=== PATIENT | female | born 1955 | race Caucasian/White ===

== ENCOUNTER 2019-10-13 11:54 | Outpatient (CLI) | payer OTHER, SELFPAY ==
--- NOTE | ~2019-10-13 | MMUS_ITS ---
EXAMINATION: MM diagnostic garcía BI w arabella, US breast RT limited HISTORY: Right breast lump TECHNIQUE: ML, MLO and craniocaudal 3-D tomosynthesis images of were performed and synthetic 2-D imag es were generated. CAD analysis was submitted and interpreted. Targeted ultrasound of right breast at area of complaint of right breast lump at 1:30 o'clock 5 cm from nipple COMPARISON: 03/17/2010 bilateral digital screening mammogram BREAST PARENCHYMAL COMPOSITION: The breasts are almost entirely fatty. FINDINGS: MAMMOGRAM: No suspicious mass or architectural distortion, malignant calcification, skin thickening or retractio n is detected. No significant new or developing density is evident since 03/17/2010 ULTRASOUND: At 1:30 5 cm from the nipple there is a circumscribed parallel 4.2 x 2.2 x 4.5 mm sonolucency with t hin septation, consistent with benign septated cyst. IMPRESSION: 1. No mammographic evidence of malignancy; benign right breast cyst at 1:30 o'clock 5 cm from nipple 2. Routine mammographic screening is recommended BI-RADS Category 2: Benign finding(s). Reviewed, dictated and finalized at location A. IMPRESSION: 1. No mammographic evidence of malignancy; benign right breast cyst at 1:30 o'c lock 5 cm from nipple 2. Routine mammographic screening is recommended BI-RADS Category 2: Benign finding(s).
== END 2019-10-13 11:55 | disposition home or self-care (01) ==
LOC: ANHIMG 12:07
PROVIDERS: PCP Nurse Practitioner Adult Health; Visit Provider Nurse Practitioner Adult Health
DX: N63.12 Unspecified lump in the right breast, upper inner quadrant (principal)
CPT/HCPCS: 76642; 77062; 77066; G0279

== ENCOUNTER 2023-09-02 12:31 | Outpatient (CLI) | payer MEDICARE, SELFPAY ==
--- NOTE | ~2023-09-02 | US_ITS ---
EXAMINATION: US soft tissue head and neck DATE: 09/02/2023 13:00 INDICATION: Localized swelling, mass and lump, neck. TECHNIQUE: Multiple ultrasound images of the thyroid were obtained. COMPARISON: Ultrasound 08/08/2018 FINDINGS: The right thyroid lobe measures 4.1 x 1.1 x 1.5 cm. The left thyroid lobe measures 3.9 x 1.3 x 1.4 c m. In the left thyroid lobe, there is a 9 mm solid, very hypoechoic, wider than tall nodule with smo oth margin without echogenic foci (TI-RADS TR4). In the left thyroid lobe, there is a 13 mm solid, hy poechoic wider than tall nodule with ill-defined margin without echogenic foci (TR4). IMPRESSION: 1. Small thyroid nodules. Thyroid ultrasound is recommended in one year. Reviewed, dictated and finalized at location A.
--- NOTE | ~2023-09-02 | CT_ITS ---
CT of the Abdomen and Pelvis: Indication: Abdominal pain Technique: 2.5 mm axial scans were obtained through the abdomen and pelvis following intravenous adm inistration of 100 cc of Omnipaque 350. Dose reduction technique was used on this scan by utilizing a utomated exposure control and iterative reconstruction technique. The dose-length product (DLP) was 1 029.30 mGy-cm. Findings: Scans through the lung bases demonstrate 3 mm right middle lobe pulmonary nodule. The liver, spleen, pancreas, adrenals and kidneys are within normal limits. Cholecystectomy clips are present. There are atherosclerotic calcifications of the aorta. No lymphadenopathy. No bowel obstruction or bowel wall thickening. There is no evidence to suggest acute appendicitis. Ev idence of prior herniorrhaphy. Images through the pelvis were performed. Urinary bladder unremarkable. No pelvic mass seen. No ascit es. Impression: 3 mm right middle lobe pulmonary nodule, most likely benign. Consider 12 month follow-up scan for a h igh-risk patient. For a low-risk patient, no further follow-up required. No other significant findings. Reviewed, dictated and finalized at location . Impression: 3 mm right middle lobe pulmonary nodule, most likely benign. Consider 12 month follow-up scan for a high-risk patient. For a low-risk patient, no further foll ow-up required. No other significant findings.
[2023-09-02 13:08] LABS: Estimated Glomerular Filt Rate > 60
== END 2023-09-02 12:32 ==
PROVIDERS: PCP Family Medicine; Visit Provider Family Medicine
DX: R91.1 Solitary pulmonary nodule (principal); E04.2 Nontoxic multinodular goiter
CPT/HCPCS: 74177; 76536; Q9967

== ENCOUNTER 2023-12-16 10:41 | Outpatient (CLI) | payer MEDICARE, SELFPAY ==
--- NOTE | ~2023-12-16 | US_ITS ---
US axilla LT 12/16/2023 10:56 Indication: Localized enlarged lymph nodes Procedure: High-resolution ultrasound of the left axilla Comparison: No prior studies for comparison. Findings: In the area of palpable concern there is an 8 mm hyperechoic mass which may represents a be nign lipoma or normal lymph node. No other masses are identified. Impression: 1: Hyperechoic 8 mm left axillary mass corresponds to the area of palpable concern which most likely represents a benign lipoma or abnormal lymph node. Recommend follow-up as clinically indicated. Reviewed, dictated and finalized at location B. Impression: 1: Hyperechoic 8 mm left axillary mass corresponds to the area of palpable conc pippa which most likely represents a benign lipoma or abnormal lymph node. Recomm end follow-up as clinically indicated.
--- NOTE | ~2023-12-16 | US_ITS ---
EXAMINATION: US soft tissue head and neck DATE: 12/16/2023 10:57 INDICATION: R59.0 - Localized enlarged lymph nodes . TECHNIQUE: Grayscale and Doppler ultrasound images of the right neck were obtained. COMPARISON: None. FINDINGS: The area of clinical concern in the right supraclavicular region was sonographically interr ogated. No solid or cystic mass. No abnormality detected. IMPRESSION: No sonographic abnormality detected in the area of clinical concern. Reviewed, dictated and finalized at location K.
== END 2023-12-16 10:42 ==
LOC: MICIMG 10:42
PROVIDERS: PCP Nurse Practitioner Adult Health; Visit Provider Nurse Practitioner Adult Health
DX: R59.0 Localized enlarged lymph nodes (principal); R59.9 Enlarged lymph nodes, unspecified
CPT/HCPCS: 76536; 76882

== ENCOUNTER 2023-12-24 08:39 | Outpatient (CLI) | payer MEDICARE, SELFPAY ==
--- NOTE | ~2023-12-24 | MM_ITS ---
EXAMINATION: MM diagnostic garcía BI w arabella HISTORY: Recent left axillary ultrasound for palpable abnormality. TECHNIQUE: Additional 3-D tomosynthesis images of the breasts were performed and synthetic 2-D images were generated. CAD analysis was submitted and interpreted. COMPARISON: 10/13/2019 BREAST PARENCHYMAL COMPOSITION: Not dense: There are scattered areas of fibroglandular density. FINDINGS: The breasts are stable. No new masses, calcifications or architectural distortion in either breast to suggest malignancy. There are benign vascular calcifications. IMPRESSION: 1. No mammographic evidence for malignancy in either breast. 2. Recommend 6 month follow-up Limited left axillary ultrasound recommended. BI-RADS category 3, probably benign findings. Reviewed, dictated and finalized at location B.
== END 2023-12-24 08:40 ==
LOC: MICIMG 08:40
PROVIDERS: PCP Nurse Practitioner Adult Health; Visit Provider Nurse Practitioner Adult Health
DX: R59.0 Localized enlarged lymph nodes (principal); R92.8 Other abnormal and inconclusive findings on diagnostic imaging of breast
CPT/HCPCS: 77062; 77066; G0279

== ENCOUNTER 2024-07-06 11:20 | Outpatient (CLI) | payer MEDICARE, SELFPAY ==
--- NOTE | ~2024-07-06 | MMUS_ITS ---
EXAMINATION: MM diagnostic garcía LT w arabella, US axilla LT HISTORY: Follow-up left axillary mass. TECHNIQUE: Additional 3-D tomosynthesis images of the left breast were performed and synthetic 2-D im ages were generated. CAD analysis was submitted and interpreted. High resolution left axillary ultras ound was performed. COMPARISON: Comparison to multiple prior studies sequentially, with oldest reviewed study dated 08/16. BREAST PARENCHYMAL COMPOSITION: Not Dense: The breasts are almost entirely fatty. FINDINGS: MAMMOGRAPHIC FINDINGS: There are no suspicious masses, calcifications or architectural distortion in the left breast to sugg est malignancy. ULTRASOUND: Left axillary ultrasound: Palpable concern there is a normal-appearing left axillary lymph node measuring 1 cm. A second hetero geneous mass is present in the area palpable concern with complex internal echogenicity measuring 3.7 x 2.4 x 2.3 cm. There is internal vascularity and no significant posterior features. IMPRESSION: 1. New complex 3.7 cm left axillary mass which is not visualized by mammography. 2. Ultrasound-guided left axillary biopsy recommended. BI-RADS category 4, suspicious findings. Reviewed, dictated and finalized at location B. [facility]NER IMPRESSION: 1. New complex 3.7 cm left axillary mass which is not visualized by mammography . 2. Ultrasound-guided left axillary biopsy recommended. BI-RADS category 4, suspicious findings.
== END 2024-07-06 11:21 | disposition home or self-care (01) ==
LOC: MICIMG 11:21
PROVIDERS: PCP Nurse Practitioner Adult Health; Visit Provider Nurse Practitioner Adult Health
DX: R59.0 Localized enlarged lymph nodes (principal); R92.8 Other abnormal and inconclusive findings on diagnostic imaging of breast
CPT/HCPCS: 76882; 77061; 77065; G0279

== ENCOUNTER 2024-07-31 11:03 | Outpatient (CLI) | payer MEDICARE, SELFPAY ==
--- NOTE | ~2024-07-31 | US_ITS ---
EXAM: Focused ultrasound examination of the soft tissues of the bilateral axilla and bilateral groins . HISTORY: R22.32 - Localized swelling, mass and lump, left upper limb TECHNIQUE: Sonographic evaluation of the soft tissues of the left axilla were performed assessing gra yscale appearance and color Doppler flow. Sonographic evaluation of the soft tissues of the right axilla were performed assessing grayscale kiley earance and color Doppler flow. Sonographic evaluation of the soft tissues of the left groin were performed assessing grayscale appea dann and color Doppler flow. Sonographic evaluation of the soft tissues of the right groin were performed assessing grayscale appe arance and color Doppler flow. COMPARISON: 07/06/2024. FINDINGS: Sonographic evaluation of the soft tissues of the LEFT AXILLA demonstrate a single morphologically be nign nonpathologically enlarged lymph node measuring 9.5 mm in short axis dimension for which no biop sy is necessary. Sonographic evaluation of the remainder of the soft tissues of the left axilla demonstrate benign fib roglandular and fibromuscular soft tissues without a cystic or solid lesion of concern. Of note, the heterogeneous mass detected on previous examination measuring 3.7 x 2.4 x 2.3 cm is less prominent on today's study, and is without sonographic concern. Sonographic evaluation of the soft tissues of the RIGHT AXILLA demonstrates a single morphologically benign nonpathologically enlarged lymph node measuring 11.8 mm in short axis dimension. Sonographic evaluation of the remainder of the soft tissues of the right axilla demonstrate benign fi bromuscular elements without a cystic or solid lesion of concern. Sonographic evaluation of the soft tissues of the LEFT GROIN demonstrate a single morphologically kemar ign lymph node measuring 12.3 mm in short axis dimension, not pathologically enlarged. Sonographic evaluation of the remainder of the soft tissues of the left groin demonstrates benign fib romuscular elements without a cystic or solid lesion of concern. Sonographic evaluation of the soft tissues of the RIGHT GROIN demonstrates benign and fibromuscular e lements without a cystic or solid lesion of concern. No lymph nodes are appreciated sonographically. IMPRESSION: No sonographic abnormality is appreciated on focused ultrasound examination of the bilateral axilla o r bilateral groins suitable for ultrasound-guided biopsy, which was aborted. Given the patient's concern regarding her significant family history of lymphoma (diagnosed in the pa tient's mother and sister) limited ultrasound examination of the major superficial lymph node basins were performed yielding benign results. BI-RADS Category 2: Benign findings. Follow-up in 6 months to resume yearly bilateral mammography (in December 2024) is recommended. Reviewed, dictated and finalized at location A. IMPRESSION: No sonographic abnormality is appreciated on focused ultrasound examination of the bilateral axilla or bilateral groins suitable for ultrasound-guided biopsy, which was aborted. Given the patient's concern regarding her significant family history of lymphom a (diagnosed in the patient's mother and sister) limited ultrasound examination of the major superficial lymph node basins were performed yielding benign resu lts. BI-RADS Category 2: Benign findings. Follow-up in 6 months to resume yearly bilateral mammography (in December 2024) i s recommended.
--- OUTSIDE RECORDS SUMMARY | 2024-07-31 13:18 | XMS_ITS | CONTINUITY OF CARE DOCUMENT ---
Author Name nelsonana koilir Address Unknown Organization [facility] Address [address] [place] [address] Phone [phone] Care Team Providers Care Processing Technologist Name Role Phone Kris Land MD Unavailable [phone] LEFTY FINNEGAN MD Unavailable [phone] LEFTY FINNEGAN MD Unavailable PROBLEMS Condition Status Date Provider Notes SYNCOPE AND COLLAPSE active Kris ng MD PALPITATIONS active Kris Land MD MITRAL REGURGITATION active Kris ng MD ENCOUNTERS Date Type Provider Location Encounter Diag nosis - In-person encounter Office Visit Kris Land MD [place] Office SYNCOPE AND COLLAPSEPALPITATIONSMITRAL REGURGITATION VITAL SIGNS Date Observation Value Provider Body Mass Index (Ratio) 42.60 kg/m2 Raleigh ag [place] blood pressure, diastolic, left arm 79 mm [Hg] Ephraim [place] blood pressure, systolic, left arm 153 mm [Hg] Ephraim [place] blood pressure, diastolic, right arm 87 m m[Hg] Ephraim [place] blood pressure, systolic, right arm 158 m m[Hg] Ephraim [place] blood pressure, diastolic 87 mm[Hg] Izabella seph [place] blood pressure, systolic 158 mm[Hg] Yahir eph [place] pulse rate 82 /min Ephraim [place] oxygen saturation, oximetry 98 % Ephraim Hinkle respiratory rate E&M 16 /min Ephraim Hinkle weight E&M 225.4 [lb_av] Ephraim Hinkle height E&M 61.1 [in_i] Ephraim Hinkle ALLERGIES Allergy Name Onset Date Reaction Criticality Status CODEINE nausea and vomitting Low Criticality active EDVIN INHIBITORS itching in throat Low Criticalit y active HISTORY OF MEDICATION USE Medication Status Instructions Dates Provider Indications Com ments DIPHENHYDRAMINE HCL 25 MG ORAL TABLET active 1 tablet by mouth 3-4 times per week 8 Ephraim Manacosanjay MULTIVITAMINS TABS active 1 tablet by mouth daily 8 Ephraim Manacosanjay ASPIRIN 81 MG ORAL TABLET active 1 tablet by mouth daily 8 Ephraim Paacosanjay VITAMIN D (ERGOCALCIFEROL) 51179 UNIT ORAL CAPSULE active 1 capsule by mouth every 2 weeks 8 Ephraim Paacosanjay AMLODIPINE BESYLATE 2.5 MG ORAL TABLET active 1 tablet by mouth daily 8 Ephraim Manacosanjay ATENOLOL 25 MG ORAL TABLET active 1 tablet by mouth daily 8 Ephraim [place] NEXIUM 40 MG ORAL CAPSULE DELAYED RELEASE active 1 capsule by mouth daily 8 Ephraim Manacosanjay POTASSIUM CHLORIDE 20 MEQ ORAL PACKET active 1 tablet by mouth daily 8 Ephraim Paacosanjay WELCHOL 625 MG ORAL TABLET active 4 tablets by mouth daily 8 Ephraim Hinkle SOCIAL HISTORY Date Observation Value Provider social history reviewed E&M reviewed Kris Land MD number of children 2 children Ephraim baker social history E&M Marital Statu s: C hildren: 2 children L delphine with family/friends J ob Status: Retired E thnicity: Ephraim Hinkle exercise type walking Ephraim Hinkle physical exercise, frequency, days per week 2 /wk Ephraim Hinkle caffeine use, averag e drinks per day 0 /d Ephraim Hinkle drug use none Ephraim Hinkle alcohol use, type Wine - occasional Torsten nikolay [place] passive cigarette sm esau exposure yes Ephraim [place] smoking history, tot al pack/year 1/2 pack per day for 10 years Ephraim Paacosanjay smoking, year quit 1985 Ephraim López nacop smoking status former smoker Ephraim Pamichelle op MENTAL STATUS Date Observation Value Provider assessment of judgme nt and insight E&M Alert and oriented to time, place and person. Mood and affect are normal. Kris Land MD INSURANCE PROVIDERS Payer name Policy type / Coverage type [place] [employer] party [employer] PPO Other [id number] TREATMENT PLAN Date Name Complete Echo Carotid Duplex Bilat eral HISTORY OF PROCEDURES Procedure Date Procedure Name Provider Procedure Notes S sydney Schedule Followup Kris Land MD fu in 1 month completed EKG Kris Land MD in next several weeks completed
--- OUTSIDE RECORDS SUMMARY | 2024-07-31 13:18 | XMS_ITS | Data Portability ---
Author Organization [place] - [facility] [employer], Main Office Address [address] [place] [address] Care Team Providers Care Facility Engineer Name Role Phone SAMMY CANO Primary Care Provider SAMMY CANO Referring Provider [phone] Assessment Encounter Date Assessment Date Assessment LastModified by Organization Details LastModified Time 01/28/2023 01/28/2023 This note is dictated and transcribed by PopJam Direct Software. Network Control Operator variances may occur. Despite proofreading, typographical errors may occur. [email or web address] Not available 01/28/2023 11:43:15 Plan of Treatment Reminders Order Date Submit Date Provider Last Modified By Organization Details Last Modified Time Details Appointments None recorded. Lab CBC w/ auto diff 2023 024 [facility], [address], [place], [address], 4 05:40:38 CMP, serum or plasma 2023 024 [facility], [address], [place], [address], 4 05:40:37 urinalysis complete, reflex culture 2023 024 [facility], [place], [address], 4 05:40:39 TSH, serum or plasma 2023 024 [facility], [place], [address], 4 05:40:41 HbA1c (hemoglobin A1c), blood 2022 023 [email or web address] [facility], [address], [place], [address], 3 08:29:02 CMP, serum or plasma 2022 023 [email or web address] [facility], [address], [place], [address], 3 08:29:02 CBC 2022 023 [email or web address] [facility], [address], [place], [address], 3 08:29:02 lipid panel, serum 2022 023 [email or web address] [facility], [address], [place], [address], 3 08:29:03 microalbumi n, urine 2022 023 [email or web address] [facility], [address], [place], [address], 3 08:29:03 Referral change coordinator referral 2022 023 sajan Guerrier DPM, [address], [address], [place], [address], 3 20:44:18 Procedures None recorded. Surgeries None recorded. Imaging CT, abdomen + pelvis, w/ contrast 2023 [email or web address] [place] [address], [address], [place], [address], 4 08:42:47 US, neck, soft tissue 2023 [email or web address] [place] [address], [address], [place], [address], 4 09:42:45 XR, foot, 3 or more view 2022 023 [email or web address] 7 [facility] [place], [address], [address], [place], [address], 3 12:14:59 Medication Orders EpiPen 2-León 0.3 mg/0.3 mL injection, auto-inject or 2022 023 [facility] [id number] In [facility], [address], [place], [address], 3 16:42:21 metformin ER 500 mg tablet,exte nded release 24 hr 2022 023 [facility], [facility], [place], [address], 3 16:42:17 amlodipine 10 mg tablet 2022 023 [facility], [facility], [place], [address], 3 16:42:16 Patient TargetsNo targets recorded. Patient InstructionsNo instructions recorded. 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 [address] , [place], [address], 04/05/2022 10:33:56 04/04/2004/05/2022 ALBUM IN, RANDO M URINE W/O CREAT ININE CATARINA The ADA defin es abnor malit ies in album in excre tion as follo ws: Album inuri a Categ ory Resul t (mcg/ mg creat inine ) Felicita l to Mildl y incre ased <30 Moder ately incre ased 30-29 9 Sever wendy incre ased > OR = 300 The ADA recom mends that at least two of three speci mens colle cted withi n a 3-6 month perio d be abnor mal befor e consi magdiel g a patie nt to be withi n a diagn ostic categ ory. Not Available [facility] [address] [place], [address], 04/05/2022 10:33:56 04/04/20 22 04/06/2022 HEMOG LOBIN A1C hemoglobin A1C 5.8 %_of_ total _HGB <5.7 high For someo ne witho ut known diabe leigh, a hemog lobin A1c value betwe en 5.7% and 6.4% is consi stent with predi abete s and shoul d be confi rmed with a follo w-up test. For someo ne with known diabe leigh, a value <7% indic ates that their diabe leigh is well contr olled . A1c targe ts shoul d be indiv idual ized based on durat ion of diabe leigh, age, comor bid condi tions , and other consi derat ions. This assay resul t is consi stent with an incre ased risk of diabe leigh. Curre ntly, no conse nsus exist s regar ding use of hemog lobin A1c for diagn osis of diabe leigh for child kimberly. Not Available [facility] [address] [place], [address], 04/06/2022 13:02:05 04/04/20 22 04/06/2022 VITAM IN D,25- OH,TO ADRIANA,I A vitamin D,25-oh,tota l,ia 56 NG/mL 30-100 normal Vitam in D Statu s 25-OH Vitam in D: Defic iency : <20 ng/mL Insuf ficie ncy: 20 - 29 ng/mL Optim al: > or = 30 ng/mL For 25-OH Vitam in D testi ng on patie nts on D2-rolon pplem entat ion and patie nts for whom quant itati on of D2 and D3 fract ions is requi red, the [facility] eD(TM ) 25-OH VIT D, (D2,D 3), LC/MS /MS is recom larry d: order code 09460 (all ents >2yrs ). See Note 1 Note 1 For addit ional infor joseph truong e refer to http: //[facility] kanwal Realia gnost ics.c om/fa q/FAQ 199 (This link is being provi ded for infor cecy espinoza/ patricia hagen purpo ses only. ) Not Available [facility] [place] [address] [place], [address], 04/06/2022 13:02:04 04/04/20 22 04/06/2022 VITAM IN B12/F OLATE , SERUM PANEL vitamin B12 945 pg/mL 200-11 00 normal Not Available [facility] [place] [address] [place], [address], 04/06/2022 13:02:03 04/04/20 22 04/06/2022 VITAM IN B12/F OLATE , SERUM PANEL folate, serum >24.0 NG/mL normal Refer ence Range Low: <3.4 Borde rline : 3.4-5 .4 Felicita l: >5.4 Not Available [facility] [place] [address] [place], [address], 04/06/2022 13:02:03 04/04/20 22 04/06/2022 TSH TSH 2.95 mIU/L 0.40-4 .50 normal Not Available [address], [address], 04/06/2022 13:02:02 04/04/20 22 04/06/2022 T4, FREE T4, free 1.2 NG/dL 0.8-1. 8 normal Not Available [address], [address], 04/06/2022 13:02:02 04/04/20 22 04/06/2022 CBC (INCL UDES DIFF/ PLT) white blood cell count 5.6 thous and/u L 3.8-10 .8 normal Not Available [address], [address], 04/06/2022 13:02:01 04/04/20 22 04/06/2022 CBC (INCL UDES DIFF/ PLT) MCV 89.4 fL 80.0-1 00.0 normal Not Available [address], [address], 04/06/2022 13:02:01 04/04/20 22 04/06/2022 CBC (INCL UDES DIFF/ PLT) red blood cell count 5.28 rodger on/uL 3.80-5 .10 high Not Available [address], [address], 04/06/2022 13:02:01 04/04/20 22 04/06/2022 CBC (INCL UDES DIFF/ PLT) hemoglobin 16.3 g/dL 11.7-1 5.5 high Not Available [facility] [address], [address], 04/06/2022 13:02:01 04/04/20 22 04/06/2022 CBC (INCL UDES DIFF/ PLT) hematocrit 47.2 % 35.0-4 5.0 high Not Available [address], [address], 04/06/2022 13:02:01 04/04/20 22 04/06/2022 CBC (INCL UDES DIFF/ PLT) MCH 30.9 pg 27.0-3 3.0 normal Not Available [address], [address], 04/06/2022 13:02:01 04/04/20 22 04/06/2022 CBC (INCL UDES DIFF/ PLT) MCHC 34.5 g/dL 32.0-3 6.0 normal Not Available [address], [address], 04/06/2022 13:02:01 04/04/20 22 04/06/2022 CBC (INCL UDES DIFF/ PLT) RDW 12.5 % 11.0-1 5.0 normal Not Available [address], [address], 04/06/2022 13:02:01 04/04/20 22 04/06/2022 CBC (INCL UDES DIFF/ PLT) platelet count 227 thous and/u L 140-40 0 normal Not Available [address], [address], 04/06/2022 13:02:01 04/04/20 22 04/06/2022 CBC (INCL UDES DIFF/ PLT) MPV 11.9 fL 7.5-12 .5 normal Not Available [address], [address], 04/06/2022 13:02:01 04/04/20 22 04/06/2022 CBC (INCL UDES DIFF/ PLT) absolute neutrophils 3438 cells /uL 1500-7 800 normal Not Available [address], [address], 04/06/2022 13:02:01 04/04/20 22 04/06/2022 CBC (INCL UDES DIFF/ PLT) absolute lymphocytes 1439 cells /uL 850-39 00 normal Not Available [address], [address], 04/06/2022 13:02:01 04/04/2004/06/2022 CBC (INCL UDES DIFF/ PLT) absolute monocytes 577 cells /uL 200-95 0 normal Not Available [address], [address], 04/06/2022 13:02:01 04/04/20 22 04/06/2022 CBC (INCL UDES DIFF/ PLT) absolute eosinophils 118 cells /uL 15-500 normal Not Available [address], [address], 04/06/2022 13:02:01 04/04/2004/06/2022 CBC (INCL UDES DIFF/ PLT) absolute basophils 28 cells /uL 0-200 normal Not Available [address], [address], 04/06/2022 13:02:01 04/04/2004/06/2022 CBC (INCL UDES DIFF/ PLT) neutrophils 61.4 % normal Not Available [address], [address], 04/06/2022 13:02:01 04/04/2004/06/2022 CBC (INCL UDES DIFF/ PLT) lymphocytes 25.7 % normal Not Available [address], [address], 04/06/2022 13:02:01 04/04/2004/06/2022 CBC (INCL UDES DIFF/ PLT) monocytes 10.3 % normal Not Available [address] [place], [address], 04/06/2022 13:02:01 04/04/2004/06/2022 CBC (INCL UDES DIFF/ PLT) eosinophils 2.1 % normal Not Available [address], [address], 04/06/2022 13:02:01 04/04/20 22 04/06/2022 CBC (INCL UDES DIFF/ PLT) basophils 0.5 % normal Not Available [address], [address], 04/06/2022 13:02:01 04/04/20 22 04/06/2022 COMPR EHENS ANUEL METAB OLIC PANEL glucose 114 mg/dL 65-139 normal Non-f astin g refer ence inter amy Not Available [address], [address], 04/06/2022 13:02:01 04/04/20 22 04/06/2022 COMPR EHENS ANUEL METAB OLIC PANEL urea nitrogen (BUN) 13 mg/dL 7-25 normal Not Available [address], [address], 04/06/2022 13:02:01 04/04/20 22 04/06/2022 COMPR EHENS ANUEL METAB OLIC PANEL creatinine 0.70 mg/dL 0.50-1 .05 normal Not Available [address], [address], 04/06/2022 13:02:01 04/04/20 22 04/06/2022 COMPR EHENS NAUEL METAB OLIC PANEL eGFR 96 mL/mi n/1.7 3m2 > or = 60 normal The eGFR is based on the CKD-E PI 2020 equat ion. To calcu late the new eGFR from a previ ous Creat inine or Cysta walker C resul t, go to https ://xavi cornell.gallito pan/julia hampton s/ kdoqi /gfr% 5Fcal culat or Not Available [address], [address], 04/06/2022 13:02:01 04/04/20 22 04/06/2022 COMPR EHENS ANUEL METAB OLIC PANEL BUN/creatini ne ratio not applic able (calc ) 6-22 Not Available [address], [address], 04/06/2022 13:02:01 04/04/20 22 04/06/2022 COMPR EHENS ANUEL METAB OLIC PANEL sodium 141 mmol/ L 135-14 6 normal Not Available [address], [address], 04/06/2022 13:02:01 04/04/20 22 04/06/2022 COMPR EHENS ANUEL METAB OLIC PANEL potassium 3.8 mmol/ L 3.5-5. 3 normal Not Available [address], [address], 04/06/2022 13:02:01 04/04/20 22 04/06/2022 COMPR EHENS ANUEL METAB OLIC PANEL chloride 101 mmol/ L 98-110 normal Not Available [address], [address], 04/06/2022 13:02:01 04/04/20 22 04/06/2022 COMPR EHENS ANUEL METAB OLIC PANEL carbon dioxide 29 mmol/ L 20-32 normal Not Available [address], [address], 04/06/2022 13:02:01 04/04/20 22 04/06/2022 COMPR EHENS ANUEL METAB OLIC PANEL calcium 9.3 mg/dL 8.6-10 .4 normal Not Available [address], [address], 04/06/2022 13:02:01 04/04/20 22 04/06/2022 COMPR EHENS ANUEL METAB OLIC PANEL protein, total 7.1 g/dL 6.1-8. 1 normal Not Available [address], [address], 04/06/2022 13:02:01 04/04/20 22 04/06/2022 COMPR EHENS ANUEL METAB OLIC PANEL albumin 4.5 g/dL 3.6-5. 1 normal Not Available [address], [address], 04/06/2022 13:02:01 04/04/20 22 04/06/2022 COMPR EHENS ANUEL METAB OLIC PANEL globulin 2.6 g/dL_ (calc ) 1.9-3. 7 normal Not Available [address], [address], 04/06/2022 13:02:01 04/04/20 22 04/06/2022 COMPR EHENS ANUEL METAB OLIC PANEL albumin/glob ulin ratio 1.7 (calc ) 1.0-2. 5 normal Not Available [address], [address], 04/06/2022 13:02:01 04/04/20 22 04/06/2022 COMPR EHENS ANUEL METAB OLIC PANEL bilirubin, total 0.9 mg/dL 0.2-1. 2 normal Not Available [address], [address], 04/06/2022 13:02:01 04/04/20 22 04/06/2022 COMPR EHENS ANUEL METAB OLIC PANEL alkaline phosphatase 77 U/L 37-153 normal Not Available [address], [address], 04/06/2022 13:02:01 04/04/20 22 04/06/2022 COMPR EHENS ANUEL METAB OLIC PANEL AST 16 U/L 10-35 normal Not Available [address], [address], 04/06/2022 13:02:01 04/04/20 22 04/06/2022 COMPR EHENS ANUEL METAB OLIC PANEL ALT 16 U/L 6-29 normal Not Available [address], [address], 04/06/2022 13:02:01 04/04/20 22 04/06/2022 SYSTE AYDEE LUPUS ERYTH EMATO SUKHDEV (SLE) , DISEA SE ACTIV ITY PANEL DNA (ds) antibody 2 IU/mL normal IU/mL Inter preta tion < or = 4 Negat anuel 5-9 Indet ermin ate > or = 10 Posit anuel Not Available [address], [address], 04/06/2022 13:01:59 04/04/20 22 04/06/2022 SYSTE AYDEE LUPUS ERYTH EMATO SUKHDEV (SLE) , DISEA SE ACTIV ITY PANEL chromatin (nucleosomal ) antibody <1.0 neg ai <1.0 neg normal Not Available [address], [address], 04/06/2022 13:01:59 04/04/20 22 04/06/2022 SYSTE AYDEE LUPUS ERYTH EMATO SUKHDEV (SLE) , DISEA SE ACTIV ITY PANEL complement component C3C 168 mg/dL 83-193 normal Not Available [address], [address], 04/06/2022 13:01:59 04/04/20 22 04/06/2022 SYSTE AYDEE LUPUS ERYTH EMATO SUKHDEV (SLE) , DISEA SE ACTIV ITY PANEL complement component C4C 25 mg/dL 15-57 normal Not Available [address], [address], 04/06/2022 13:01:59 04/04/20 22 04/06/2022 LIPID PANEL , STAND SRAVAN chol/HDLC ratio 3.8 (calc ) <5.0 normal Not Available [facility] [address] [place], [address], 04/06/2022 13:01:59 04/04/20 22 04/06/2022 LIPID PANEL , STAND SRAVAN cholesterol, total 205 mg/dL <200 high Not Available [facility] [address] [place], [address], 04/06/2022 13:01:59 04/04/20 22 04/06/2022 LIPID PANEL , STAND SRAVAN HDL cholesterol 54 mg/dL > or = 50 normal Not Available [facility] [place] [address] [place], [address], 04/06/2022 13:01:59 04/04/20 22 04/06/2022 LIPID PANEL , STAND SRAVAN triglyceride s 155 mg/dL <150 high Not Available [facility] [place] [address] [address] [place], [address], 04/06/2022 13:01:59 04/04/20 22 04/06/2022 LIPID PANEL , STAND SRAVAN LDL-choleste rol 124 mg/dL _(cnidy c) high Refer ence range : <100 Sabino able range <100 mg/dL for prima ry preve ntion ; <70 mg/dL for patie nts with CHD or diabe tic patie nts with > or = 2 CHD risk facto rs. LDL-C is now calcu lated using the Adriana n-Hop kins calcu edi n, which is a valid ated novel metho d jonh daley r accur acy than the Fried brando equat ion in the estim ation of LDL-C . Adriana griffith SS et al. JAZMINE. 2013; 310(1 9): 2061- 2068 (http ://ed ucati on.Qu Reta shafer tics. com/f aq/FA Q164) Not Available [facility] [address] [address], [place], [address], 04/06/2022 13:01:59 04/04/20 22 04/06/2022 LIPID PANEL , STAND SRAVAN non HDL cholesterol 151 mg/dL _(cindy c) <130 high For patie nts with diabe leigh plus 1 major ASCVD risk facto r, treat ing to a non-H DL-C goal of <100 mg/dL (LDL- C of <70 mg/dL ) is ton thompson optio n. Not Available [place] [address] [place], [address], 04/06/2022 13:01:59 11/04/19 23 11/03/2022 LIPID PANEL , STAND SRAVAN cholesterol, total 201 mg/dL <200 high Not Available [address], [address], 11/04/2022 01:01:46 11/04/19 23 11/03/2022 LIPID PANEL , STAND SRAVAN HDL cholesterol 45 mg/dL > or = 50 low Not Available [place] [address] [place], [address], 11/04/2022 01:01:46 11/04/19 23 11/03/2022 LIPID PANEL , STAND SRAVAN triglyceride s 169 mg/dL <150 high Not Available [facility] [address], [address], 11/04/2022 01:01:46 11/04/19 23 11/03/2022 LIPID PANEL , STAND SRAVAN LDL-choleste rol 127 mg/dL _(cindy c) high Refer ence range : <100 Sabino able range <100 mg/dL for prima ry preve ntion ; <70 mg/dL for patie nts with CHD or diabe tic patie nts with > or = 2 CHD risk facto rs. LDL-C is now calcu lated using the Adriana n-Hop kins calcu edi n, which is a valid ated novel metho d gloriai kenneth thuy r accur acy than the Fried brando equat ion in the estim ation of LDL-C . Adriana griffith SS et al. JAZMINE. 2013; 310(1 9): 2061- 2068 (http ://ed ucati on.Qu Reta babbSiteWits. com/f aq/FA Q164) Not Available [facility] [address] [address], [place], [address], 11/04/2022 01:01:46 11/04/1911/03/2022 LIPID PANEL , STAND SRAVAN chol/HDLC ratio 4.5 (calc ) <5.0 normal Not Available [facility] [place] [address], [place], [address], 11/04/2022 01:01:46 11/04/1911/03/2022 LIPID PANEL , STAND SRAVAN non HDL cholesterol 156 mg/dL _(cindy c) <130 high For patie nts with diabe leigh plus 1 major ASCVD risk facto r, treat ing to a non-H DL-C goal of <100 mg/dL (LDL- C of <70 mg/dL ) is consi dered a thera peuti c optio n. Not Available [facility] [address] [address], [place], [address], 11/04/2022 01:01:46 11/04/1911/03/2022 COMPR EHENS ANUEL METAB OLIC PANEL glucose 113 mg/dL 65-99 high Fasti ng refer ence inter amy For someo ne witho ut known diabe leigh, a gluco se value betwe en 100 and 125 mg/dL is consi stent with predi abete s and shoul d be confi rmed with a follo w-up test. Not Available [facility] [address], [place], [address], 11/04/2022 01:01:49 11/04/1911/03/2022 COMPR EHENS ANUEL METAB OLIC PANEL urea nitrogen (BUN) 15 mg/dL 7-25 normal Not Available [facility] [place] [address] [place], [address], 11/04/2022 01:01:49 11/04/1913 1111/03/2022 COMPR EHENS ANUEL METAB OLIC PANEL creatinine 0.63 mg/dL 0.50-1 .05 normal Not Available [address], [address], 11/04/2022 01:01:49 11/04/19 23 11/03/2022 COMPR EHENS ANUEL METAB OLIC PANEL eGFR 98 mL/mi n/1.7 3m2 > or = 60 normal The eGFR is based on the CKD-E PI 2020 equat ion. To calcu late the new eGFR from a previ ous Creat inine or Cysta tin C resul t, go to https ://xavi cornell.gallito pan/julia hampton s/ kdoqi /gfr% 5Fcal culat or Not Available [address], [address], 11/04/2022 01:01:49 11/04/19 23 11/03/2022 COMPR EHENS ANUEL METAB OLIC PANEL BUN/creatini ne ratio NOT APPLIC ABLE (calc ) 6-22 Not Available [address], [address], 11/04/2022 01:01:49 11/04/19 23 11/03/2022 COMPR EHENS ANUEL METAB OLIC PANEL sodium 140 mmol/ L 135-14 6 normal Not Available [address], [address], 11/04/2022 01:01:49 11/04/19 23 11/03/2022 COMPR EHENS ANUEL METAB OLIC PANEL potassium 4.3 mmol/ L 3.5-5. 3 normal Not Available [address], [address], 11/04/2022 01:01:49 11/04/19 23 11/03/2022 COMPR EHENS ANUEL METAB OLIC PANEL chloride 103 mmol/ L 98-110 normal Not Available [address] [place], [address], 11/04/2022 01:01:49 11/04/19 23 11/03/2022 COMPR EHENS ANUEL METAB OLIC PANEL carbon dioxide 31 mmol/ L 20-32 normal Not Available [address], [address], 11/04/2022 01:01:49 11/04/1911/03/2022 COMPR EHENS ANUEL METAB OLIC PANEL calcium 9.4 mg/dL 8.6-10 .4 normal Not Available [address], [address], 11/04/2022 01:01:49 11/04/1911/03/2022 COMPR EHENS ANUEL METAB OLIC PANEL protein, total 7.1 g/dL 6.1-8. 1 normal Not Available [address], [address], 11/04/2022 01:01:49 11/04/19 23 11/03/2022 COMPR EHENS ANUEL METAB OLIC PANEL albumin 4.4 g/dL 3.6-5. 1 normal Not Available [address], [address], 11/04/2022 01:01:49 11/04/19 23 11/03/2022 COMPR EHENS ANUEL METAB OLIC PANEL globulin 2.7 g/dL_ (calc ) 1.9-3. 7 normal Not Available [facility] [address], [address], 11/04/2022 01:01:49 11/04/1911/03/2022 COMPR EHENS ANUEL METAB OLIC PANEL albumin/glob ulin ratio 1.6 (calc ) 1.0-2. 5 normal Not Available [address], [address], 11/04/2022 01:01:49 11/04/1911/03/2022 COMPR EHENS ANUEL METAB OLIC PANEL bilirubin, total 0.9 mg/dL 0.2-1. 2 normal Not Available [address], [address], 11/04/2022 01:01:49 11/04/1911/03/2022 COMPR EHENS ANUEL METAB OLIC PANEL alkaline phosphatase 68 U/L 37-153 normal Not Available [facility] [employer] [address], [address], 11/04/2022 01:01:49 11/04/1911/03/2022 COMPR EHENS ANUEL METAB OLIC PANEL AST 14 U/L 10-35 normal Not Available [address], [address], 11/04/2022 01:01:49 11/04/1911/03/2022 COMPR EHENS ANUEL METAB OLIC PANEL ALT 14 U/L 6-29 normal Not Available [address], [address], 11/04/2022 01:01:49 11/04/1911/03/2022 CBC (H/H, RBC, INDIC ES, WBC, PLT) white blood cell count 5.8 thous and/u L 3.8-10 .8 normal Not Available [address], [address], 11/04/2022 01:01:49 11/04/1911/03/2022 CBC (H/H, RBC, INDIC ES, WBC, PLT) red blood cell count 4.96 rodger on/uL 3.80-5 .10 normal Not Available [address], [address], 11/04/2022 01:01:49 11/04/19 23 11/03/2022 CBC (H/H, RBC, INDIC ES, WBC, PLT) hemoglobin 15.4 g/dL 11.7-1 5.5 normal Not Available [address], [address], 11/04/2022 01:01:49 11/04/1911/03/2022 CBC (H/H, RBC, INDIC ES, WBC, PLT) hematocrit 45.1 % 35.0-4 5.0 high Not Available [address], [address], 11/04/2022 01:01:49 11/04/1911/03/2022 CBC (H/H, RBC, INDIC ES, WBC, PLT) MCV 90.9 fL 80.0-1 00.0 normal Not Available [address], [address], 11/04/2022 01:01:49 11/04/1911/03/2022 CBC (H/H, RBC, INDIC ES, WBC, PLT) MCH 31.0 pg 27.0-3 3.0 normal Not Available [address], [address], 11/04/2022 01:01:49 11/04/1911/03/2022 CBC (H/H, RBC, INDIC ES, WBC, PLT) MCHC 34.1 g/dL 32.0-3 6.0 normal Not Available [address], [address], 11/04/2022 01:01:49 11/04/1911/03/2022 CBC (H/H, RBC, INDIC ES, WBC, PLT) RDW 12.6 % 11.0-1 5.0 normal Not Available [address], [address], 11/04/2022 01:01:49 11/04/1911/03/2022 CBC (H/H, RBC, INDIC ES, WBC, PLT) platelet count 231 thous and/u L 140-40 0 normal Not Available [facility] [address] [place], [address], 11/04/2022 01:01:49 11/04/1911/03/2022 CBC (H/H, RBC, INDIC ES, WBC, PLT) MPV 11.5 fL 7.5-12 .5 normal Not Available [facility] [address] [address] [place], [address], 11/04/2022 01:01:49 11/04/1911/03/2022 HEMOG LOBIN A1C hemoglobin A1C 5.8 %_of_ total _HGB <5.7 high For someo ne witho ut known diabe leigh, a hemog lobin A1c value betwe en 5.7% and 6.4% is consi stent with predi abete s and shoul d be confi rmed with a follo w-up test. For someo ne with known diabe leigh, a value <7% indic ates that their diabe leigh is well contr olled . A1c targe ts shoul d be indiv idual ized based on durat ion of diabe leigh, age, comor bid condi tions , and other consi derat ions. This assay resul t is consi stent with an incre ased risk of diabe leigh. Curre ntly, no conse nsus exist s regar ding use of hemog lobin A1c for diagn osis of diabe leigh for child kimberly. Not Available [facility] [address] [place], [address], 11/04/2022 01:01:50 08/27/19 24 08/28/2023 COMPR EHENS ANUEL METAB OLIC PANEL glucose 111 mg/dL 65-99 high Fasti ng refer ence inter amy For someo ne witho ut known diabe leigh, a gluco se value betwe en 100 and 125 mg/dL is consi stent with predi abete s and shoul d be confi rmed with a follo w-up test. Not Available [address], [address], 08/28/2023 05:40:37 08/27/19 24 08/28/2023 COMPR EHENS ANUEL METAB OLIC PANEL urea nitrogen (BUN) 16 mg/dL 7-25 normal Not Available [address], [address], 08/28/2023 05:40:37 08/27/19 24 08/28/2023 COMPR EHENS ANUEL METAB OLIC PANEL creatinine 0.70 mg/dL 0.50-1 .05 normal Not Available [facility] [address], [address], 08/28/2023 05:40:37 08/27/19 24 08/28/2023 COMPR EHENS ANUEL METAB OLIC PANEL eGFR 95 mL/mi n/1.7 3m2 > or = 60 normal Not Available [address], [address], 08/28/2023 05:40:37 08/27/19 24 08/28/2023 COMPR EHENS ANUEL METAB OLIC PANEL BUN/creatini ne ratio SEE NOTE: (calc ) 6-22 Not Repor cha: BUN and Creat inine are withi n refer ence range . Not Available [facility] [address], [address], 08/28/2023 05:40:37 08/27/19 24 08/28/2023 COMPR EHENS ANUEL METAB OLIC PANEL sodium 142 mmol/ L 135-14 6 normal Not Available [facility] [address], [address], 08/28/2023 05:40:37 08/27/19 24 08/28/2023 COMPR EHENS ANUEL METAB OLIC PANEL potassium 4.8 mmol/ L 3.5-5. 3 normal Not Available [facility] [address], [address], 08/28/2023 05:40:37 08/27/19 24 08/28/2023 COMPR EHENS ANUEL METAB OLIC PANEL chloride 102 mmol/ L 98-110 normal Not Available [address], [address], 08/28/2023 05:40:37 08/27/19 24 08/28/2023 COMPR EHENS ANUEL METAB OLIC PANEL carbon dioxide 31 mmol/ L 20-32 normal Not Available [address], [address], 08/28/2023 05:40:37 08/27/19 24 08/28/2023 COMPR EHENS ANUEL METAB OLIC PANEL calcium 9.7 mg/dL 8.6-10 .4 normal Not Available [address], [address], 08/28/2023 05:40:37 08/27/19 24 08/28/2023 COMPR EHENS ANUEL METAB OLIC PANEL protein, total 7.4 g/dL 6.1-8. 1 normal Not Available [address], [address], 08/28/2023 05:40:37 08/27/19 24 08/28/2023 COMPR EHENS ANUEL METAB OLIC PANEL albumin 4.6 g/dL 3.6-5. 1 normal Not Available [address], [address], 08/28/2023 05:40:37 08/27/19 24 08/28/2023 COMPR EHENS ANUEL METAB OLIC PANEL globulin 2.8 g/dL_ (calc ) 1.9-3. 7 normal Not Available [address], [address], 08/28/2023 05:40:37 08/27/19 24 08/28/2023 COMPR EHENS ANUEL METAB OLIC PANEL albumin/glob ulin ratio 1.6 (calc ) 1.0-2. 5 normal Not Available [address], [address], 08/28/2023 05:40:37 08/27/19 24 08/28/2023 COMPR EHENS ANUEL METAB OLIC PANEL bilirubin, total 0.9 mg/dL 0.2-1. 2 normal Not Available [address], [address], 08/28/2023 05:40:37 08/27/19 24 08/28/2023 COMPR EHENS ANUEL METAB OLIC PANEL alkaline phosphatase 74 U/L 37-153 normal Not Available [address], [address], 08/28/2023 05:40:37 08/27/19 24 08/28/2023 COMPR EHENS ANUEL METAB OLIC PANEL AST 16 U/L 10-35 normal Not Available [address], [address], 08/28/2023 05:40:37 08/27/19 24 08/28/2023 COMPR EHENS ANUEL METAB OLIC PANEL ALT 15 U/L 6-29 normal Not Available [address], [address], 08/28/2023 05:40:37 08/27/19 24 08/28/2023 CBC (INCL UDES DIFF/ PLT) white blood cell count 5.8 thous and/u L 3.8-10 .8 normal Not Available [address], [address], 08/28/2023 05:40:38 08/27/19 24 08/28/2023 CBC (INCL UDES DIFF/ PLT) red blood cell count 5.03 rodger on/uL 3.80-5 .10 normal Not Available [facility] [address], [address], 08/28/2023 05:40:38 08/27/19 24 08/28/2023 CBC (INCL UDES DIFF/ PLT) hemoglobin 15.6 g/dL 11.7-1 5.5 high Not Available [facility] [address], [address], 08/28/2023 05:40:38 08/27/19 24 08/28/2023 CBC (INCL UDES DIFF/ PLT) hematocrit 46.7 % 35.0-4 5.0 high Not Available [facility] [address], [address], 08/28/2023 05:40:38 08/27/19 24 08/28/2023 CBC (INCL UDES DIFF/ PLT) MCV 92.8 fL 80.0-1 00.0 normal Not Available [facility] [address], [address], 08/28/2023 05:40:38 08/27/19 24 08/28/2023 CBC (INCL UDES DIFF/ PLT) MCH 31.0 pg 27.0-3 3.0 normal Not Available [address], [address], 08/28/2023 05:40:38 08/27/19 24 08/28/2023 CBC (INCL UDES DIFF/ PLT) MCHC 33.4 g/dL 32.0-3 6.0 normal Not Available [facility] [address], [address], 08/28/2023 05:40:38 08/27/19 24 08/28/2023 CBC (INCL UDES DIFF/ PLT) RDW 12.9 % 11.0-1 5.0 normal Not Available [facility] [address], [address], 08/28/2023 05:40:38 08/27/19 24 08/28/2023 CBC (INCL UDES DIFF/ PLT) platelet count 272 thous and/u L 140-40 0 normal Not Available [address], [address], 08/28/2023 05:40:38 08/27/19 24 08/28/2023 CBC (INCL UDES DIFF/ PLT) MPV 11.7 fL 7.5-12 .5 normal Not Available [address], [address], 08/28/2023 05:40:38 08/27/19 24 08/28/2023 CBC (INCL UDES DIFF/ PLT) absolute neutrophils 3167 cells /uL 1500-7 800 normal Not Available [address], [address], 08/28/2023 05:40:38 08/27/19 24 08/28/2023 CBC (INCL UDES DIFF/ PLT) absolute lymphocytes 1775 cells /uL 850-39 00 normal Not Available [address], [address], 08/28/2023 05:40:38 08/27/19 24 08/28/2023 CBC (INCL UDES DIFF/ PLT) absolute monocytes 667 cells /uL 200-95 0 normal Not Available [address], [address], 08/28/2023 05:40:38 08/27/19 24 08/28/2023 CBC (INCL UDES DIFF/ PLT) absolute eosinophils 139 cells /uL 15-500 normal Not Available [facility] [address], [address], 08/28/2023 05:40:38 08/27/19 24 08/28/2023 CBC (INCL UDES DIFF/ PLT) absolute basophils 52 cells /uL 0-200 normal Not Available [address] [place], [address], 08/28/2023 05:40:38 08/27/19 24 08/28/2023 CBC (INCL UDES DIFF/ PLT) neutrophils 54.6 % normal Not Available [facility] [address], [address], 08/28/2023 05:40:38 08/27/19 24 08/28/2023 CBC (INCL UDES DIFF/ PLT) lymphocytes 30.6 % normal Not Available [facility] [address], [address], 08/28/2023 05:40:38 08/27/19 24 08/28/2023 CBC (INCL UDES DIFF/ PLT) monocytes 11.5 % normal Not Available [facility] [address], [address], 08/28/2023 05:40:38 08/27/19 24 08/28/2023 CBC (INCL UDES DIFF/ PLT) eosinophils 2.4 % normal Not Available [facility] [address], [address], 08/28/2023 05:40:38 08/27/19 24 08/28/2023 CBC (INCL UDES DIFF/ PLT) basophils 0.9 % normal Not Available [facility] [address], [address], 08/28/2023 05:40:38 08/27/19 24 08/28/2023 URINA LYSIS , COMPL ETE W/REF GLO TO CULTU RE color YELLOW yellow normal Not Available [facility] [address], [address], 08/28/2023 05:40:39 08/27/19 24 08/28/2023 URINA LYSIS , COMPL ETE W/REF GLO TO CULTU RE appearance CLOUDY clear abnormal Not Available [facility] [address], [address], 08/28/2023 05:40:39 08/27/19 24 08/28/2023 URINA LYSIS , COMPL ETE W/REF GLO TO CULTU RE specific gravity 1.016 1.001- 1.035 normal Not Available [address], [address], 08/28/2023 05:40:39 08/27/19 24 08/28/2023 URINA LYSIS , COMPL ETE W/REF GLO TO CULTU RE pH 5.5 5.0-8. 0 normal Not Available [address], [address], 08/28/2023 05:40:39 08/27/19 24 08/28/2023 URINA LYSIS , COMPL ETE W/REF GLO TO CULTU RE glucose NEGATI VE negati ve normal Not Available [address], [address], 08/28/2023 05:40:39 08/27/19 24 08/28/2023 URINA LYSIS , COMPL ETE W/REF GLO TO CULTU RE bilirubin NEGATI VE negati ve normal Not Available [address], [address], 08/28/2023 05:40:39 08/27/19 24 08/28/2023 URINA LYSIS , COMPL ETE W/REF GLO TO CULTU RE ketones 1+ negati ve abnormal Not Available [address], [address], 08/28/2023 05:40:39 08/27/19 24 08/28/2023 URINA LYSIS , COMPL ETE W/REF GLO TO CULTU RE occult blood NEGATI VE negati ve normal Not Available [address], [address], 08/28/2023 05:40:39 08/27/19 24 08/28/2023 URINA LYSIS , COMPL ETE W/REF GLO TO CULTU RE protein NEGATI VE negati ve normal Not Available [address], [address], 08/28/2023 05:40:39 08/27/19 24 08/28/2023 URINA LYSIS , COMPL ETE W/REF GLO TO CULTU RE nitrite NEGATI VE negati ve normal Not Available [address], [address], 08/28/2023 05:40:39 08/27/19 24 08/28/2023 URINA LYSIS , COMPL ETE W/REF GLO TO CULTU RE leukocyte esterase NEGATI VE negati ve normal Not Available [address], [address], 08/28/2023 05:40:39 08/27/19 24 08/28/2023 URINA LYSIS , COMPL ETE W/REF GLO TO CULTU RE WBC 0-5 /hpf < or = 5 normal Not Available [address], [address], 08/28/2023 05:40:39 08/27/19 24 08/28/2023 URINA LYSIS , COMPL ETE W/REF GLO TO CULTU RE RBC 0-2 /hpf < or = 2 normal Not Available [address], [address], 08/28/2023 05:40:39 08/27/19 24 08/28/2023 URINA LYSIS , COMPL ETE W/REF GLO TO CULTU RE squamous epithelial cells 10-20 /hpf < or = 5 abnormal Not Available [address], [address], 08/28/2023 05:40:39 08/27/19 24 08/28/2023 URINA LYSIS , COMPL ETE W/REF GLO TO CULTU RE bacteria MODERA TE /hpf none seen abnormal Not Available [address], [address], 08/28/2023 05:40:39 08/27/19 24 08/28/2023 URINA LYSIS , COMPL ETE W/REF GLO TO CULTU RE calcium oxalate crystals MANY /hpf none or few abnormal Not Available [address], [address], 08/28/2023 05:40:39 08/27/19 24 08/28/2023 URINA LYSIS , COMPL ETE W/REF GLO TO CULTU RE hyaline cast 0-5 /lpf none seen abnormal Not Available [address], [address], 08/28/2023 05:40:39 08/27/19 24 08/28/2023 URINA LYSIS , COMPL ETE W/REF GLO TO CULTU RE note This urine was parul zed for the prese nce of WBC, RBC, bacte charan, casts , and other forme d eleme nts. Only those eleme nts seen were repor cha. Not Available [address], [address], 08/28/2023 05:40:39 08/27/19 24 08/28/2023 REFLE XIVE URINE CULTU RE reflexive urine culture NO CULTU RE INDIC ATED Not Available [address], [address], 08/28/2023 05:40:40 08/27/19 24 08/28/2023 TSH W/REF GLO TO FT4 TSH w/reflex to FT4 3.56 mIU/L 0.40-4 .50 normal Not Available [address], [address], 08/28/2023 05:40:40 01/29/20 23 XR, foot, 3 or more view No observ ation record ed. [email or web address] [facility] [place] [address], [address], [place], [address], 01/28/2023 12:14:51 09/02/19 24 09/02/2023 CT, abdom en + pelvi s, w/ contr ast No observ ation record ed. [email or web address] [facility] [address], [place], [address], 10/12/2023 14:16:09 09/02/19 24 09/02/2023 US, neck, soft tissu e No observ ation record ed. [email or web address] [facility] [address], [place], [address], 2023 10:56:05 09/02/19 24 09/02/2023 US, neck, soft tissu e No observ ation record ed. [address] [facility] [address], [place], [address], 2023 10:57:21 Result Notes None recorded. Problems Name Problem SNOMED Code Status Onset Date Resolution Date Notes Provider Name and Address Organization Details Recorded Time Acne 52870120 Completed Not Available [facility] 3 05:56:05 Abdominal pain 52417387 Completed BELA Bautista [address] [facility], [place], [address] , [facility] 4 11:48:02 Gastroeso phageal reflux disease 526018154 Active Not Available [facility] 3 05:56:06 Thyroid nodule 921379770 Active Not Available [facility] 3 05:56:06 Triggerin g of digit 147916353 Active Not Available [facility] 3 05:56:06 Pain in thyroid 591421326 Completed Not Available [facility] 3 05:56:06 Influenza vaccinati on declined 162629601 Active 2021 Not Available [facility] 3 05:56:06 Vitamin D deficienc y 01843523 Active Not Available [facility] 3 05:56:06 Allergy to food 355398969 Active Not Available [facility] 3 05:56:06 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 2016 Not Available [facility] 3 05:56:06 Tendiniti s of hand 293785794 Completed Not Available [facility] 3 05:56:06 Hypokalem ia 81876983 Completed Not Available [facility] 3 05:56:06 Anxiety 66085827 Active Not Available [facility] 3 05:56:06 Hip pain 39975590 Completed Not Available [facility] 3 05:56:06 Hyperlipi demia 08830908 Active Not Available [facility] 3 05:56:07 Essential hypertens ion 39809283 Active Not Available [facility] 3 05:56:07 Diarrhea 34004953 Completed Not Available [facility] 3 05:56:07 Supravent ricular tachycard ia 0678244 Active Not Available [facility] 3 05:56:07 Muscle pain 21590749 Completed Not Available [facility] 3 05:56:07 Prediabet es 626362474 Active 2021 Not Available [facility] 3 05:56:07 Diabetes mellitus 35781732 Active Not Available [facility] 3 05:56:07 Hyperglyc emia 45747468 Active Not Available [facility] 3 05:56:07 Fatigue 29290133 Active Not Available [facility] 3 05:56:07 Psoriasis 3167407 Active Not Available [facility] 3 05:56:08 Kidney stone 69111357 Active Not Available [facility] 3 05:56:08 Pain in left foot 24028902910 9107 Active 2022 Sammy Cano, [employer] [address] [facility], [place], [address] , [facility] 3 16:34:00 Right flank pain 755224296 Active 2022 SHANTELL Reyna [address], [address], [place], [address] , [facility] 3 16:35:24 Seasonal allergy 103117567 Active 2022 Suzanne Valle null, [place] [facility] [place] [facility] 3 11:14:36 Arthritis 0234502 Active 2022 Suzanne Valle null, [place] [facility] 3 11:18:59 Dizziness 990776361 Active 2022 Suzanne Valle null, [place] [facility] 3 11:19:21 Disorder of eye 082310750 Active 2022 Suzanne Valle null, [place] [facility] 3 11:19:30 Headache 70793351 Active 2022 Suzanne Valle null, [place] [facility] 3 11:19:42 Heartburn 66005151 Active 2022 Suzanne Valle null, [place] [facility] 3 11:19:49 Obesity 835081046 Active 2022 Suzanne Valle null, [place] [facility] 3 11:20:09 Skin problem 941653181 Active 2022 Suzanne Valle null, [place] [facility] 3 11:20:18 Tendiniti s of foot 920977121 Active 2022 Stan Guerrier DPM [address], [address], [place], [address] , [facility] 3 11:42:34 Mass of neck 662131410 Active 2023 BELA Bautista [address], [address], [place], [address] , [facility] 11:43:57 Abdominal pain 07712949 Active 2023 BELA Bautista [address], [address], [place], [address] , [facility] [employer] [facility] 11:48:02 Problem Notes None recorded. Procedures Surgical History Date Name Laterality Status Provider Name and Address Organization Details Recorded Time 01/29/20 23 Plantar Fascia Injection Left Foot completed Stan Guerrier DPM [address], [address], [place], [address], [facility] [employer] [facility] 01/28/2023 11:42:16 05/24/18 90 Tonsillectomy completed Suzanne Valle [facility] [employer] [facility] 01/28/2023 11:17:18 Cholecystectomy completed Not Available [facility] 07/22/2022 05:52:17 completed Not Available [facility] 07/22/2022 05:52:17 Hysterectomy completed Not Available [facility] 07/22/2022 05:52:17 Hernia Repair completed Not Available [facility] 07/22/2022 05:52:17 Colonoscopy completed Not Available [facility] 07/22/2022 05:52:17 Imaging Results Imaging Date Name Status LastModified by Organiz ation Details LastModified Time 01/28/2023 XR, foot, 3 or more view completed [email or web address] [facility] [place] [address], [place], [address], 01/28/2023 12:14:51 09/02/2023 CT, abdomen + pelvis, w/ contrast completed [email or web address] [facility] [address], [place], [address], 10/12/2023 14:16:09 09/02/2023 US, neck, soft tissue completed [email or web address] [facility] [address], [place], [address], 2023 10:56:05 09/02/2023 US, neck, soft tissue completed [email or web address] [facility] [address], [place], [address], 2023 10:57:21 Procedure Notes None recorded. Medical Equipment None Reported. Allergies Allergen ID Allergen Name Allergen Category Reaction Reaction Severity Criticality Documentation Date Start Date Code Code System Note Provider Name and Address Organization Details Recorded Time 68000 Zyrtec medicatio n dizziness Not available Not available 07/22/2022 62097 RxNorm Not Available [facility] 3 06:04:54 95794 wheat preparati on food,medi cation Not available Not available Not available 07/22/2022 31740 52 RxNorm Not Available [facility] 3 06:04:54 92772 Niaspan medicatio n other Not available Not available 07/22/2022 31761 6 RxNorm INCRE ASED SUGAR Not Available [facility] 3 06:04:54 06342 amlodipin e / benazepri l medicatio n cough Not available Not available 07/22/2022 63588 3 RxNorm Not Available [facility] 3 06:04:54 24526 Diovan medicatio n headache Not available Not available 07/22/2022 21361 2 RxNorm Not Available [facility] 3 06:04:54 78969 codeine medicatio n Not available Not available Not available 07/22/2022 2670 RxNorm Not Available [facility] 3 06:04:54 55804 Benicar medicatio n headache Not available Not available 07/22/2022 58237 3 RxNorm Not Available [facility] 3 06:04:54 28596 fish oils food,medi cation hives Not available Not available 01/28/2023 4419 RxNorm DELORES [facility] 3 11:06:01 44481 Product containin g angiotens in-conver ting enzyme inhibitor (product) medicatio n Not available Not available Not available 01/28/2023 90851 009 SNOMED DELORES [facility] 3 11:06:18 Medications Name Sig Start Date Stop Date Status Note LastModified by Organization Details LastModified Time atorvasta tin 10 mg tablet Take 1 tablet every day by oral route at bedtime for 30 days. 03/22 completed Not Available Not Available Not Available atenolol 25 mg tablet TAKE 1 TABLET BY MOUTH DAILY. active Not Available Not Available No t Available Nexium 40 mg capsule,d elayed release Take 1 capsule( s) every day by oral route . 07/25 completed Not Available Not Available Not Available amlodipin e 2.5 mg tablet TAKE ONE TABLET BY MOUTH THREE TIMES DAILY 07/25 completed Not Available Not Available Not Available amlodipin e 5 mg tablet TAKE ONE TABLET BY MOUTH ONCE DAILY 01/28 completed Not Available Not Available Not Available Depo-Medr ol 80 mg/mL suspensio n for injection 01/24 completed Not Available Not Available Not Available methocarb tristian 750 mg tablet Take 1 tablet twice a day by oral route as needed for 10 days. active Not Available Not Available No t Available amlodipin e 10 mg tablet Take 1 tablet every day by oral route for 90 days. active Not Available Not Available No t Available WelChol 625 mg tablet TAKE 6 TABLETS BY MOUTH DAILY 10/18 completed Not Available Not Available Not Available ranitidin e 150 mg tablet Take 1 tablet(s ) twice a day by oral route. active Not Available Not Available No t Available aspirin 81 mg chewable tablet Chew 1 tablet every day by oral route for 30 days. 07/25 completed Not Available Not Available Not Available epinephri ne 0.3 mg/0.3 mL injection , auto-inje ctor INJECT 1 AUTO-INJ KANDY PEN INTO THE MUSCLE AT ONSET OF SYMPTOMS . MAY REPEAT DOSE AFTER 5-15 MINUTES. active Not Available Not Available No t Available Vitamin D2 1,250 mcg (50,000 unit) capsule TAKE 1 CAPSULE BY MOUTH WEEKLY 01/28 completed Not Available Not Available Not Available metformin ER 500 mg tablet,ex tended release 24 hr TAKE 1 TABLET DAILY active Not Available Not Available No t Available Crestor 5 mg tablet Take 1 tablet every day by oral route for 30 days. 04/13 completed DIARRHEA AND COUGHING Not Available Not Available Not Available Klor-Con M20 mEq tablet,ex tended release Take 1 tablet every day by oral route active Not Available Not Available No t Available nitrofura ntoin monohydra te/macroc rystals 100 mg capsule TAKE 1 CAPSULE BY MOUTH TWICE DAILY FOR 7 DAYS 01/28 completed Not Available Not Available Not Available potassium chloride 01/28 completed Not Available Not Available Not Available Cholestyr amine Light 4 gram oral powder Take 1 scoop 3 times a day by oral route. 10/18 completed Not Available Not Available Not Available Vitamin D2 active Not Available Not Available Not Available potassium chloride ER 20 mEq tablet,ex tended release Take 1 po daily 08/23 completed Not Available Not Available Not Available ID NOW COVID-19 Test Kit TEST DIRECTED 03/31 completed Not Available Not Available Not Available Vitals Date Recorded Body mass index (BMI) Body height Oxygen saturation Oxygen saturation in Arterial blood by Pulse oximetry Heart rate Body temperature Body weight Systolic blood pressure Diastolic blood pressure Provider Name and Address Organization Details Last Updated DateTime 2 43.5 kg/m2 157.48 cm 98 % 98 % 95 /min 97.2 [degF] 670392. 98 g 160 mm[Hg] 80 mm[Hg] Not Available [facility] 3 05:55:10 Date Recorded Body height Body mass index (BMI) Body weight Body temperature Heart rate Oxygen saturation Oxygen saturation in Arterial blood by Pulse oximetry Systolic blood pressure Diastolic blood pressure Provider Name and Address Organization Details Last Updated DateTime 3 157.48 cm 44.1 kg/m2 027692. 76 g 97.8 [degF] 104 /min 98 % 98 % 178 mm[Hg] 100 mm[Hg] Nicole Delgado RN [facility] 3 16:12:37 Date Recorded Body height Body mass index (BMI) Body weight Provider Name and Address Organization Details Last Updated DateTime 01/28/2023 157.48 cm 43.3 kg/m2 736832.39 g Suzanne Valle [facility] 01/28/2023 11:14:07 Date Recorded Body height Body mass index (BMI) Body weight Heart rate Respiratory rate Oxygen saturation Oxygen saturation in Arterial blood by Pulse oximetry Systolic blood pressure Diastolic blood pressure Provider Name and Address Organization Details Last Updated DateTime 3 157.48 cm 43.3 kg/m2 431724. 39 g 83 /min 14 /min 98 % 98 % 156 mm[Hg] 83 mm[Hg] Tomasa Mora [facility] [employer] [facility] 3 10:14:04 Date Recorded Body height Body mass index (BMI) Body weight Body temperature Heart rate Oxygen saturation Oxygen saturation in Arterial blood by Pulse oximetry Systolic blood pressure Diastolic blood pressure Provider Name and Address Organization Details Last Updated DateTime 4 157.48 cm 44.3 kg/m2 777635. 35 g 97.1 [degF] 84 /min 99 % 99 % 150 mm[Hg] 82 mm[Hg] Sabina Lawson RN [facility] [employer] [facility] 4 11:36:23 Social History Question Answer Notes LastModified by Organizat ion Details LastModified Time Tobacco Smoking Status Former Smoker Suzanne hester, [facility] [employer] [facility] 01/28/2023 11:05:16 What Is Your Level Of Alcohol Consumption? Occasional [id number] Information not available 07/22/2022 What Is Your Level Of Caffeine Consumption? None [id number] Information not available 07/22/2022 Do You Feel Stressed (tense, Restless, Nervous, Or Anxious, Or Unable To Sleep At Night)? [id number] Information not available 01/28/2023 Do You Use Any Illicit Or Recreational Drugs? No Information not available 01/28/2023 Sex: Unknown Functional Status None recorded. Mental Status None recorded. Family History Relationship Description Onset Age of this Age Resolved Age Notes LastModified by Organization Details LastModified Time Father Family history of malignant neoplasm multip le myleom a frivastorres Not available 08/24/2023 11:24:37 Father Arthritis frivastorres Not avai lable 08/24/2023 11:24:37 Father Hypertensive disorder Not available 2022 11:16:00 Paternal Aunt Family history of malignant neoplasm lympho ma frivastorres Not available 08/24/2023 11:24:37 Unspecified Relation Diabetes mellitus GRANDM OTHER Not available 01/28/2023 11:15:08 Unspecified Relation Cerebrovascu lar accident GRANDF ATHER frivastorres Not available 08/24/2023 11:24:37 Unspecified Relation Hypertensive disorder SIBLIN GS Not available 01/28/2023 11:16:00 Mother Arthritis frivastorres Not avai lable 08/24/2023 11:24:37 Mother Hypertensive disorder Not available 2022 11:16:00 Mother Heart disease Not available 2022 11:16:14 Mother Osteoporosis frivastorres Not a vailable 08/24/2023 11:24:37 Mother Family history of malignant neoplasm frivastorres Not available 06/2023 11:24:37 Brother Heart disease Not available 2022 11:16:14 Brother Family history of malignant neoplasm frivastorres Not available 06/2023 11:24:37 Sister Family history of malignant neoplasm frivastorres Not available 06/2023 11:24:37 Medical History Condition Response ARTHRITIS Y DIABETES, TYPE Y SKIN PROBLEMS Y ALLERGIES/HAYFEVER Y HEARTBURN / REFLUX Y HIGH CHOLESTEROL / HYPERLIPIDEMIA Y EAR OR HEARING PROBLEMS Y HEPATITIS / LIVER DISEASE Y BACK / NECK PROBLEMS Y HEADACHES/MIGRAINES Y HYPERTENSION Y OBESITY Y BRONCHITIS Y Gynecological History Statement/Question Response Current Control Method Hysterectom y Breast Problems no Obstetrics History GPAL:G 0 P 0 0 0 0 Immunizations Vaccine Type Date Status Note Provider Nam e and Address Organization Details Recorded Time COVID-19, mRNA, LNP-S, PF, 100 mcg/0.5mL dose or 50 mcg/0.25mL dose 1 completed Not Available [facility] 07/22/2022 06:04:49 COVID-19, mRNA, LNP-S, PF, 100 mcg/0.5mL dose or 50 mcg/0.25mL dose 1 completed Not Available [facility] 07/22/2022 06:04:49 Influenza, split virus, trivalent, preservative 3 completed Not Available [facility] 07/22/2022 06:04:49 Influenza, split virus, trivalent, preservative 2 completed Not Available [facility] 07/22/2022 06:04:49 Tdap 1 completed Not Available [facility] 07/22/2022 06:04:49 Influenza, split virus, trivalent, PF 3 completed Not Available [facility] 07/22/2022 06:04:49 Past Encounters Encounter ID Performer Location Encounter Start Date Encounter Closed Date Diagnosis/Indication Diagnosis SNOMED-CT Code Diagnosis ICD10 Code Diagnosis Note [id number] [facility] Horacio huertas [facility] [place] [id number] 03/05/2021 00:00:00 03/05/2021 13:35:58 [id number] [facility] Horacio huertas [facility] [place] [id number] 10/08/2021 00:00:00 10/08/2021 12:08:22 [id number] [facility] Horacio huertas [facility] [place] [id number] 03/31/2022 00:00:00 03/31/2022 17:21:[id number] [facility] Primary Care Kelly huertas [address] [place] [address] 10/22/2022 16:03:31 10/22/2022 17:06:51 Diabetes mellitus 45783593 E11.9 [id number] 5.8 (04/04/22) Discussed need for regular exercise, increase intake of water/vege tables/fib er. Decrease intake of carbs, especially white rice/pasta /flour/kishan ad/sugar.D ue for updated labs. Essential hypertension [id number] I10 Not in good controlAsy mptomatic at this timeIncrea se amlodipine to 10mg dailyEncou raged pt to increase water intake, reduce caffeine intake, exercise regularly, decrease/e liminate sodium intake, work on weight loss and stress reductionP t to continue to track bps at home. Call if bps consistent ly >150/90. Allergy to food [id number] 1 T78.1XXD ChronicWhe at, shellfishC ontinue to avoid contact with trigger foods and/or contaminat ion of foods.Enco uraged pt to update Epi-pen, new rx given. Pain in left foot [id number] M79.672 New problemLef t lateral footNo visible injury to foot.Will refer to podiatry for further evaluation /tx. Right flank pain 4058620 09 R10.9 New problemSus pect muscle strainDisc ussed with patient that symptoms and physical examinatio n findings are consistent with muscle/ten don strain. Encouraged rest/activ ity modificati on, applicatio n of ice/heat, proper body mechanics, and use of an OTC anti-infla mmatory as needed. [id number] Stan Guerrier DPM [facility] [address], [facility] [address] [place] [address] 01/28/2023 11:00:45 01/28/2023 12:15:42 Tendinitis of foot [id number] M77.52 steroid injection todayrice therapycon tinue supportive shoe gearrecomm end [employer] orthoticsx -rays ordered left footfollow -up in 4 weeks [id number] Stan Guerrier DPM [facility] [address], [facility] [address] [place] [address] 03/02/2023 10:06:49 03/02/2023 11:24:12 Tendinitis of foot [id number] M77.52 continue supportive shoe gearimprov edrice therapyrec ommend [employer] orthotics- - not utilizefol low-up in 5 weeks [id number] BELA Bautista [facility] [address] [facility] [facility] [place] [address] 08/24/2023 11:23:31 08/24/2023 12:00:26 Mass of neck [id number] R22.1 -noted to right neck, approx 5 weeks ago-some tenderness noted to right side of neck-notes hx of 3 thyroid nodules in the past, she never got her f/u US after covid-no dysphagia, but does note new scratchine ss to her voice-US neck ordered Abdominal pain [id number] R10.9 -pt notes hx of hernia repair with mesh in 1999-now noting pains in the lower abdomen (area of mesh)-CT abdomen ordered Health Concerns Section Related Observation LastModified by Organization Detai ls LastModified Time None Recorded Concern Status LastModified by Organization Details LastModified Time None Recorded Advance Directives Directive None Recorded Payers Encounter Date Sequence Insurance Name Policy Number Policy Vidales Covered Member ID Vidales Member ID Guarantor Name 10/22/2022 1 [employer] (MEDICARE REPLACEMENT PPO) [id number] Courtney Edwards [id number] Yaya Edwards 01/28/2023 1 [employer] (MEDICARE REPLACEMENT PPO) [id number] Courtney Edwards [id number] Yaya Edwards 03/02/2023 1 [employer] (MEDICARE REPLACEMENT PPO) [id number] Courtney Edwards [id number] Yaya Edwards 08/24/2023 1 [employer] (MEDICARE REPLACEMENT PPO) [id number] Courtney Edwards [id number] Yaya Edwards Notes Date Note Type Note Provider Name and Address Organization Details Recorded Time 10/22/2022 text/html 1. Pt in office to establish care. Was previously a pt of Theresa Mai. States she is a little stressed lately. Got lost coming to the office today. Thinks that's why her bp is elevated. States home bps are normally 130s/80s.2. 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 States that was her good eye prior to that. Pt reports she also has macular degeneration. States she sees ophthalmology for injections.3. Pt c/o having pain in left foot for the last several months. Sometimes walking makes the pain worse. Pt c/o pain on the outside of her foot. States that sx sometimes improve with otc Tylenol or Motrin, but not consistently.4. Pt c/o having right flank pain for a few months. States no pain with walking and normal activities. Only has pain when laying on right side in bed, but pain is gone by morning.5. Pt reports multiple food allergies, but does not have a current Epi-pen. States she believes pen she has at home in 2014. SHANTELL Reyna [address], [place], [address], [employer] 10/22/2022 18:00:10 01/28/2023 text/html . Patient is a 67-year-old female diabetic who presents the office with complaints of left foot pain. Patient states the pain started after she injured her right foot. Patient states that she was walking upstairs and her sandal caught the top of her stair causing her to have right foot pain. Patient states that she was favoring the right foot with her left hand that is when the discomfort started. Patient states she is no longer having any pain in her right foot will occasionally have pain but does not have any pain today and is more concerned about the pain in her left foot. Patient states the pain is along her dorsal left 5th metatarsal area. Patient states it radiates up her foot. Patient has good active range of motion of all of her toes and has no significant bruising or wounds to the top of her foot. Patient does have some mild swelling along the extensor tendon sheaths of the 4th and 5th ray that is mild in nature. Patient denies any treatment for this condition. Patient denies any other pedal complaints. Stan Guerrier DPM [address], [place], [address], [employer] 01/28/2023 12:15:09 03/02/2023 text/html . Patient is a 67-year-old female who returns the office for follow-up on tendinitis of the left foot. Patient states after the injection she has had significant relief. Patient states she is only having minor discomfort at times with weight-bearing. Patient states she is more active now. Patient states that she is pleased with her results. Patient was reviewed other treatment modalities and she would like to continue at-home therapy and icing with supportive shoe gear. Patient if continues to have problems over the next couple weeks we will send to physical therapy. Stan Guerrier DPM [address], [place], [address], [employer] [facility] [employer] 03/02/2023 10:49:04 08/24/2023 text/html pt is here for thyroid nodules BELA Bautista [address], [facility] [address], [place], [address], [place] [facility] [employer] [facility] 08/25/2023 10:37:20 OBGyn Episode No OBEpisode recorded.
== END 2024-07-31 11:04 | disposition home or self-care (01) ==
LOC: ANHIMG 11:05
PROVIDERS: PCP Nurse Practitioner Adult Health; Visit Provider Nurse Practitioner Adult Health
DX: R22.32 Localized swelling, mass and lump, left upper limb (principal)
CPT/HCPCS: 76882

== ENCOUNTER 2024-12-25 14:05 | Outpatient (CLI) | payer MEDICARE, SELFPAY ==
--- NOTE | ~2024-12-25 | MM_ITS ---
EXAMINATION: MM screening garcía BI w arabella HISTORY: Screening TECHNIQUE: Craniocaudal and mediolateral oblique 3-D tomosynthesis images were obtained and synthetic 2-D images were generated. CAD analysis was submitted and interpreted. COMPARISON: Comparison to multiple prior studies sequentially, with oldest reviewed study dated 10/09. BREAST PARENCHYMAL COMPOSITION: The breasts are almost entirely fatty. FINDINGS: There is no evidence of suspicious mass, calcification, or architectural distortion to sug gest malignancy in either breast. IMPRESSION: 1. No mammographic evidence of malignancy. 2. Recommend routine screening mammography in one year. BI-RADS Category 1: Negative Reviewed, dictated and finalized at location B.
== END 2024-12-25 14:06 | disposition home or self-care (01) ==
LOC: MICIMG 14:06
PROVIDERS: PCP Nurse Practitioner Adult Health; Visit Provider Nurse Practitioner Adult Health
DX: Z12.31 Encounter for screening mammogram for malignant neoplasm of breast (principal)
CPT/HCPCS: 77063; 77067

== ENCOUNTER 2025-02-26 10:50 | Outpatient (CLI) | payer MEDICARE, SELFPAY ==
--- NOTE | ~2025-02-26 | CT_ITS ---
EXAMINATION:CT diagnostic chest wo con DATE: 02/26/2025 11:12 INDICATION: Solitary pulmonary nodule. TECHNIQUE: Computed tomography (CT) of the chest was performed without intravenous contrast. Automated exposure control and iterative reconstruction technique were employed. The dose-length product (DLP) was 416.78 mGy-cm. COMPARISON: CT abdomen and pelvis 09/02/2023 FINDINGS: There are few scattered nodules in the lungs measuring up to 4 mm. There is mild bronchiectasis in the inferior lungs. No pleural effusion. The heart size is normal. There are coronary artery calcifications. No pericardial effusion. There is a small sliding hiatal hernia. There are changes of cholecystectomy. There is a 11 mm cyst in the liver. There is severe cervical spondylosis and mild thoracic spondylosis. IMPRESSION: 1. Pulmonary nodules measuring up to 4 mm, likely benign. Reviewed, dictated and finalized at location E.
--- OUTSIDE RECORDS SUMMARY | 2025-02-26 12:23 | XMS_ITS | Data Portability ---
Author Organization [place] [facility] [employer], Main Office Address [address] [place] [address] Care Team Providers Care Print Inspector Name Role Phone SAMMY CANO Primary Care Provider SAMMY CANO Referring Provider Assessment Encounter Date Assessment Date Assessment LastModified by Organization Details LastModified Time 01/28/2023 01/28/2023 This note is dictated and transcribed by E[employer] Software. Financial Reporting Accountant variances may occur. Despite proofreading, typographical errors may occur. [email or web address] Not available 01/28/2023 11:43:15 Plan of Treatment Reminders Order Date Submit Date Provider Last Modified By Organization Details Last Modified Time Details Appointments None recorded. Lab CBC w/ auto diff 2023 [employer] [facility], [address], [place], [address], 4 05:40:38 CMP, serum or plasma 2023 024 [email or web address] [facility], [address], [place], [address], 4 05:40:37 urinalysis complete, reflex culture 2023 024 [employer] [facility], [address], [place], [address], 4 05:40:39 TSH, serum or plasma 2023 024 [employer] [facility], [address], [place], [address], 4 05:40:41 HbA1c (hemoglobin A1c), blood 2022 023 [email or web address] [facility], [address], [place], [address], 3 08:29:02 CMP, serum or plasma 2022 023 [email or web address] [facility], [address], [place], [address], 3 08:29:02 CBC 2022 023 [email or web address] [facility], [address], [place], [address], 3 08:29:02 lipid panel, serum 2022 023 [email or web address] [facility], [address], [place], [address], 3 08:29:03 microalbumi n, urine 2022 023 [email or web address] [facility], [address], [place], [address], 3 08:29:03 Referral order builder referral 2022 023 [email or web address] Stan Guerrier DPM, [address] [facility], [address], [place], [address], 3 20:44:18 Procedures None recorded. Surgeries None recorded. Imaging CT, abdomen + pelvis, w/ contrast 2023 [email or web address] [place] [address], [address], [place], [address], 4 08:42:47 US, neck, soft tissue 2023 [email or web address] [place] [address], [address], [place], [address], 4 09:42:45 XR, foot, 3 or more view 2022 023 [email or web address] [facility] [place], [address] [facility] [address], [place], [address], 3 12:14:59 Medication Orders EpiPen 2-León 0.3 mg/0.3 mL injection, auto-inject or 2022 023 [facility] [address] In [facility], [address] [facility], [place], [address], 3 16:42:21 metformin ER 500 mg tablet,exte nded release 24 hr 2022 023 [facility], [place], [address], 3 16:42:17 amlodipine 10 mg tablet 2022 023 [facility], [facility], [place], [address], 3 16:42:16 Patient TargetsNo targets recorded. Patient InstructionsNo instructions recorded. Reason for Referral Account Review Specialist Referral for Pain in left foot Referring Physician: Sammy Cano, Family Medicine, Encounter Date: 10/22/2022 Results Created Date Observation Date Name Description Value Unit Range Abnormal Flag Note LastModifiedBy Organization Detail LastModifiedTime 04/04/20 22 04/05/2022 ALBUM IN, RANDO M URINE W/O CREAT ININE albumin, urine 1.0 mg/dL see note: normal Refer ence Range : Refer ence Range Not estab lishe d Not Available [facility] [address], [place], [address], 04/05/2022 10:33:56 04/04/2004/05/2022 ALBUM IN, RANDO M [...] a diagn ostic categ ory. Not Available [facility] [address], [place], [address], 04/05/2022 10:33:56 04/04/2004/06/2022 HEMOG LOBIN A1C hemoglobin A1C 5.8 %_of_ [...] diabe leigh for child kimberly. Not Available [facility] [address], [place], [address], 04/06/2022 13:02:05 04/04/20 22 04/06/2022 VITAM IN [...] /MS is recom larry d: order code 10971 (all ents >2yrs ). See Note 1 Note 1 For addit ional infor joseph truong e refer to http: //[facility] kanwal Real[employer] gnost ics.c om/fa q/FAQ 199 (This link is being provi ded for infor cecy espinoza/ patricia hagen purpo ses only. ) Not Available [facility] [address] [address] [place], [address], 04/06/2022 13:02:04 04/04/20 22 04/06/2022 VITAM IN B12/F OLATE , SERUM PANEL vitamin B12 945 pg/mL 200-11 00 normal Not Available [facility] [address] [address] [place], [address], 04/06/2022 13:02:03 04/04/20 22 04/06/2022 VITAM IN B12/F OLATE , SERUM PANEL folate, serum >24.0 NG/mL normal Refer ence Range Low: <3.4 Borde rline : 3.4-5 .4 Felicita l: >5.4 Not Available [facility] [address] [address] [place], [address], 04/06/2022 13:02:03 04/04/20 22 04/06/2022 TSH TSH 2.95 mIU/L 0.40-4 .50 normal Not Available [address], [address], 04/06/2022 13:02:02 04/04/20 22 04/06/2022 T4, FREE T4, free 1.2 NG/dL 0.8-1. 8 normal Not Available [address], [address], 04/06/2022 13:02:02 04/04/20 22 04/06/2022 CBC (INCL UDES DIFF/ PLT) white blood cell count 5.6 thous and/u L 3.8-10 .8 normal Not Available [address], [address], 04/06/2022 13:02:01 04/04/20 22 04/06/2022 CBC (INCL UDES DIFF/ PLT) MCV 89.4 fL 80.0-1 00.0 normal Not Available [address], [address], 04/06/2022 13:02:01 04/04/20 22 04/06/2022 CBC (INCL UDES DIFF/ PLT) red blood cell count 5.28 rodger on/uL 3.80-5 .10 high Not Available [address], [address], 04/06/2022 13:02:01 04/04/20 22 04/06/2022 CBC (INCL UDES DIFF/ PLT) hemoglobin 16.3 g/dL 11.7-1 5.5 high Not Available [facility] [address], [address], 04/06/2022 13:02:01 04/04/20 22 04/06/2022 CBC (INCL UDES DIFF/ PLT) hematocrit 47.2 % 35.0-4 5.0 high Not Available [address], [address], 04/06/2022 13:02:01 04/04/20 22 04/06/2022 CBC (INCL UDES DIFF/ PLT) MCH 30.9 pg 27.0-3 3.0 normal Not Available [address], [address], 04/06/2022 13:02:01 04/04/20 22 04/06/2022 CBC (INCL UDES DIFF/ PLT) MCHC 34.5 g/dL 32.0-3 6.0 normal Not Available [address], [address], 04/06/2022 13:02:01 04/04/20 22 04/06/2022 CBC (INCL UDES DIFF/ PLT) RDW 12.5 % 11.0-1 5.0 normal Not Available [address], [address], 04/06/2022 13:02:01 04/04/20 22 04/06/2022 CBC (INCL UDES DIFF/ PLT) platelet count 227 thous and/u L 140-40 0 normal Not Available [address], [address], 04/06/2022 13:02:01 04/04/20 22 04/06/2022 CBC (INCL UDES DIFF/ PLT) MPV 11.9 fL 7.5-12 .5 normal Not Available [address], [address], 04/06/2022 13:02:01 04/04/20 22 04/06/2022 CBC (INCL UDES DIFF/ PLT) absolute neutrophils 3438 cells /uL 1500-7 800 normal Not Available [address], [address], 04/06/2022 13:02:01 04/04/20 22 04/06/2022 CBC (INCL UDES DIFF/ PLT) absolute lymphocytes 1439 cells /uL 850-39 00 normal Not Available [address], [address], 04/06/2022 13:02:01 04/04/20 22 04/06/2022 CBC (INCL UDES DIFF/ PLT) absolute monocytes 577 cells /uL 200-95 0 normal Not Available [address], [address], 04/06/2022 13:02:01 04/04/20 22 04/06/2022 CBC (INCL UDES DIFF/ PLT) absolute eosinophils 118 cells /uL 15-500 normal Not Available [address], [address], 04/06/2022 13:02:01 04/04/20 22 04/06/2022 CBC (INCL UDES DIFF/ PLT) absolute basophils 28 cells /uL 0-200 normal Not Available [address], [address], 04/06/2022 13:02:01 04/04/20 22 04/06/2022 CBC (INCL UDES DIFF/ PLT) neutrophils 61.4 % normal Not Available [address], [address], 04/06/2022 13:02:01 04/04/20 22 04/06/2022 CBC (INCL UDES DIFF/ PLT) lymphocytes 25.7 % normal Not Available [address], [address], 04/06/2022 13:02:01 04/04/20 22 04/06/2022 CBC (INCL UDES DIFF/ PLT) monocytes 10.3 % normal Not Available [facility] [place], [address], 04/06/2022 13:02:01 04/04/20 22 04/06/2022 CBC (INCL UDES DIFF/ PLT) eosinophils 2.1 % normal Not Available [address], [address], 04/06/2022 13:02:01 04/04/20 22 04/06/2022 CBC (INCL UDES DIFF/ PLT) basophils 0.5 % normal Not Available [address], [address], 04/06/2022 13:02:01 04/04/20 22 04/06/2022 COMPR EHENS ANUEL METAB OLIC PANEL glucose 114 mg/dL 65-139 normal Non-f astin g refer ence inter amy Not Available [address], [address], 04/06/2022 13:02:01 04/04/20 22 04/06/2022 COMPR EHENS ANUEL METAB OLIC PANEL urea nitrogen (BUN) 13 mg/dL 7-25 normal Not Available [address], [address], 04/06/2022 13:02:01 04/04/20 22 04/06/2022 COMPR EHENS ANUEL METAB OLIC PANEL creatinine 0.70 mg/dL 0.50-1 .05 normal Not Available [address], [address], 04/06/2022 13:02:01 04/04/20 22 04/06/2022 COMPR EHENS ANUEL METAB OLIC PANEL eGFR 96 mL/mi n/1.7 3m2 > or = 60 normal The eGFR is based on the CKD-E PI 2020 equat ion. To calcu late the new eGFR from a previ ous Creat inine or Cysta tin C resul t, go to https ://xavi cornell.gallito pan/julia hampton s/ kdoqi /gfr% 5Fcal culat or Not Available [address], [address], 04/06/2022 13:02:01 04/04/20 22 04/06/2022 COMPR EHENS ANULE METAB OLIC PANEL BUN/creatini ne ratio not applic able (calc ) 6-22 Not Available [address], [address], 04/06/2022 13:02:01 04/04/20 22 04/06/2022 COMPR EHENS ANUEL METAB OLIC PANEL sodium 141 mmol/ L 135-14 6 normal Not Available [address], [address], 04/06/2022 13:02:01 04/04/20 22 04/06/2022 COMPR EHENS ANUEL METAB OLIC PANEL potassium 3.8 mmol/ L 3.5-5. 3 normal Not Available [address], [address], 04/06/2022 13:02:01 04/04/20 22 04/06/2022 COMPR EHENS ANUEL METAB OLIC PANEL chloride 101 mmol/ L 98-110 normal Not Available [address], [address], 04/06/2022 13:02:01 04/04/20 22 04/06/2022 COMPR EHENS ANUEL METAB OLIC PANEL carbon dioxide 29 mmol/ L 20-32 normal Not Available [address], [address], 04/06/2022 13:02:01 04/04/20 22 04/06/2022 COMPR EHENS ANUEL METAB OLIC PANEL calcium 9.3 mg/dL 8.6-10 .4 normal Not Available [address], [address], 04/06/2022 13:02:01 04/04/20 22 04/06/2022 COMPR EHENS ANUEL METAB OLIC PANEL protein, total 7.1 g/dL 6.1-8. 1 normal Not Available [address], [address], 04/06/2022 13:02:01 04/04/20 22 04/06/2022 COMPR EHENS ANUEL METAB OLIC PANEL albumin 4.5 g/dL 3.6-5. 1 normal Not Available [address], [address], 04/06/2022 13:02:01 04/04/20 22 04/06/2022 COMPR EHENS ANUEL METAB OLIC PANEL globulin 2.6 g/dL_ (calc ) 1.9-3. 7 normal Not Available [address], [address], 04/06/2022 13:02:01 04/04/20 22 04/06/2022 COMPR EHENS ANUEL METAB OLIC PANEL albumin/glob ulin ratio 1.7 (calc ) 1.0-2. 5 normal Not Available [address], [address], 04/06/2022 13:02:01 04/04/20 22 04/06/2022 COMPR EHENS ANUEL METAB OLIC PANEL bilirubin, total 0.9 mg/dL 0.2-1. 2 normal Not Available [address], [address], 04/06/2022 13:02:01 04/04/20 22 04/06/2022 COMPR EHENS ANUEL METAB OLIC PANEL alkaline phosphatase 77 U/L 37-153 normal Not Available [facility] [email or web address] [address], [address], 04/06/2022 13:02:01 04/04/20 22 04/06/2022 COMPR EHENS ANUEL METAB OLIC PANEL AST 16 U/L 10-35 normal Not Available [address], [address], 04/06/2022 13:02:01 04/04/20 22 04/06/2022 COMPR EHENS ANUEL METAB OLIC PANEL ALT 16 U/L 6-29 normal Not Available [address], [address], 04/06/2022 13:02:01 04/04/20 22 04/06/2022 SYSTE AYDEE LUPUS ERYTH EMATO SUKHDEV (SLE) , DISEA SE ACTIV ITY PANEL DNA (ds) antibody 2 IU/mL normal IU/mL Inter preta tion < or = 4 Negat anuel 5-9 Indet ermin ate > or = 10 Posit anuel Not Available [address], [address], 04/06/2022 13:01:59 04/04/20 22 04/06/2022 SYSTE AYDEE LUPUS ERYTH EMATO SUHKDEV (SLE) , DISEA SE ACTIV ITY PANEL chromatin (nucleosomal ) antibody <1.0 neg ai <1.0 neg normal Not Available [address], [address], 04/06/2022 13:01:59 04/04/20 22 04/06/2022 SYSTE AYDEE LUPUS ERYTH EMATO SUKHDEV (SLE) , DISEA SE ACTIV ITY PANEL complement component C3C 168 mg/dL 83-193 normal Not Available [address], [address], 04/06/2022 13:01:59 04/04/20 22 04/06/2022 SYSTE AYDEE LUPUS ERYTH EMATO SUKHDEV (SLE) , DISEA SE ACTIV ITY PANEL complement component C4C 25 mg/dL 15-57 normal Not Available [address], [address], 04/06/2022 13:01:59 04/04/20 22 04/06/2022 LIPID PANEL , STAND SRAVAN chol/HDLC ratio 3.8 (calc ) <5.0 normal Not Available [facility] [address] [address] [place], [address], 04/06/2022 13:01:59 04/04/20 22 04/06/2022 LIPID PANEL , STAND SRAVAN cholesterol, total 205 mg/dL <200 high Not Available [facility] [address] [address] [place], [address], 04/06/2022 13:01:59 04/04/20 22 04/06/2022 LIPID PANEL , STAND SRAVAN HDL cholesterol 54 mg/dL > or = 50 normal Not Available [facility] [address] [address] [place], [address], 04/06/2022 13:01:59 04/04/20 22 04/06/2022 LIPID PANEL , STAND SRAVAN triglyceride s 155 mg/dL <150 high Not Available [facility] [address], [address], 04/06/2022 13:01:59 04/04/20 22 04/06/2022 LIPID PANEL , STAND SRAVAN LDL-choleste rol 124 mg/dL _(cindy c) high Refer ence range [...] valid ated novel metho d gloriai kenneth daley r accur acy than the Fried brando equat ion in the estim ation of LDL-C . Adriana griffith SS et al. JAZMINE. 2013; 310(1 9): 2061- 2068 (http ://ed ucati on.Qu Reta shafer tics. com/f aq/FA Q164) Not Available [facility] [address] [address] [place], [address], 04/06/2022 13:01:59 04/04/20 22 04/06/2022 LIPID PANEL , STAND SRAVAN non HDL cholesterol 151 mg/dL _(cindy c) <130 high For patie nts with diabe leigh plus 1 major ASCVD risk facto r, treat ing to a non-H DL-C goal of <100 mg/dL (LDL- C of <70 mg/dL ) is ton bootheo n. Not Available [address] [address] [place], [address], 04/06/2022 13:01:59 11/04/19 23 11/03/2022 LIPID PANEL , STAND SRAVAN cholesterol, total 201 mg/dL <200 high Not Available [address], [address], 11/04/2022 01:01:46 11/04/19 23 11/03/2022 LIPID PANEL , STAND SRAVAN HDL cholesterol 45 mg/dL > or = 50 low Not Available [address] [address] [place], [address], 11/04/2022 01:01:46 11/04/19 23 11/03/2022 LIPID PANEL , STAND SRAVAN triglyceride s 169 mg/dL <150 high Not Available [address], [address], 11/04/2022 01:01:46 11/04/19 23 11/03/2022 LIPID PANEL , STAND SRAAVN LDL-choleste rol 127 mg/dL _(cindy c) high [...] is a valid ated novel metho d provi kenneth thuy r accur acy than the Fried brando equat ion in the estim ation of LDL-C . Adriana griffith SS et al. JAZMINE. 2013; 310(1 9): 2061- 2068 (http ://ed ucati on.NIMBOXX Reta skinnymoka5. com/f aq/FA Q164) Not Available [facility] [address] [address] [address], [place], [address], 11/04/2022 01:01:46 11/04/19 23 11/03/2022 LIPID PANEL , STAND SRAVAN chol/HDLC ratio 4.5 (calc ) <5.0 normal Not Available [facility] [address] [address] [address], [place], [address], 11/04/2022 01:01:46 11/04/1911/03/2022 LIPID PANEL , STAND SRAVAN non HDL cholesterol 156 mg/dL _(cindy c) <130 high For patie nts with diabe leigh plus 1 major ASCVD risk facto r, treat ing to a non-H DL-C goal of <100 mg/dL (LDL- C of <70 mg/dL ) is consi dered a thera peuti c optio n. Not Available [facility] [address] [address] [address], [place], [address], 11/04/2022 01:01:46 11/04/1911/03/2022 COMPR EHENS ANUEL METAB OLIC PANEL glucose 113 mg/dL 65-99 high Fasti ng refer ence inter amy For someo ne witho ut known diabe leigh, a gluco se value betwe en 100 and 125 mg/dL is consi stent with predi abete s and shoul d be confi rmed with a follo w-up test. Not Available [facility] [address] [address] [address], [place], [address], 11/04/2022 01:01:49 11/04/1911/03/2022 COMPR EHENS ANUEL METAB OLIC PANEL urea nitrogen (BUN) 15 mg/dL 7-25 normal Not Available [facility] [address] [address] [place], [address], 11/04/2022 01:01:49 11/04/19 23 11/03/2022 COMPR EHENS ANUEL METAB OLIC PANEL creatinine 0.63 mg/dL 0.50-1 .05 normal Not Available [address], [address], 11/04/2022 01:01:49 11/04/19 23 11/03/2022 COMPR EHENS [...] kdoqi /gfr% 5Fcal culat or Not Available [address], [address], 11/04/2022 01:01:49 11/04/19 23 11/03/2022 COMPR EHENS ANUEL METAB OLIC PANEL BUN/creatini ne ratio NOT APPLIC ABLE (calc ) 6-22 Not Available [address], [address], 11/04/2022 01:01:49 11/04/19 23 11/03/2022 COMPR EHENS ANUEL METAB OLIC PANEL sodium 140 mmol/ L 135-14 6 normal Not Available [address], [address], 11/04/2022 01:01:49 11/04/19 23 11/03/2022 COMPR EHENS ANUEL METAB OLIC PANEL potassium 4.3 mmol/ L 3.5-5. 3 normal Not Available [address], [address], 11/04/2022 01:01:49 11/04/19 23 11/03/2022 COMPR EHENS ANUEL METAB OLIC PANEL chloride 103 mmol/ L 98-110 normal Not Available [address], [address], 11/04/2022 01:01:49 11/04/19 23 11/03/2022 COMPR EHENS ANUEL METAB OLIC PANEL carbon dioxide 31 mmol/ L 20-32 normal Not Available [address], [address], 11/04/2022 01:01:49 11/04/1911/03/2022 COMPR EHENS ANUEL METAB OLIC PANEL calcium 9.4 mg/dL 8.6-10 .4 normal Not Available [address], [address], 11/04/2022 01:01:49 11/04/1911/03/2022 COMPR EHENS ANUEL METAB OLIC PANEL protein, total 7.1 g/dL 6.1-8. 1 normal Not Available [address], [address], 11/04/2022 01:01:49 11/04/1911/03/2022 COMPR EHENS ANUEL METAB OLIC PANEL albumin 4.4 g/dL 3.6-5. 1 normal Not Available [address], [address], 11/04/2022 01:01:49 11/04/19 23 11/03/2022 COMPR EHENS ANUEL METAB OLIC PANEL globulin 2.7 g/dL_ (calc ) 1.9-3. 7 normal Not Available [address], [address], 11/04/2022 01:01:49 11/04/1911/03/2022 COMPR EHENS ANUEL METAB OLIC PANEL albumin/glob ulin ratio 1.6 (calc ) 1.0-2. 5 normal Not Available [address], [address], 11/04/2022 01:01:49 11/04/1911/03/2022 COMPR EHENS ANUEL METAB OLIC PANEL bilirubin, total 0.9 mg/dL 0.2-1. 2 normal Not Available [address], [address], 11/04/2022 01:01:49 11/04/1911/03/2022 COMPR EHENS ANUEL METAB OLIC PANEL alkaline phosphatase 68 U/L 37-153 normal Not Available [address], [address], 11/04/2022 01:01:49 11/04/1911/03/2022 COMPR EHENS ANUEL METAB OLIC PANEL AST 14 U/L 10-35 normal Not Available [address], [address], 11/04/2022 01:01:49 11/04/1911/03/2022 COMPR EHENS ANUEL METAB OLIC PANEL ALT 14 U/L 6-29 normal Not Available [address], [address], 11/04/2022 01:01:49 11/04/1911/03/2022 CBC (H/H, RBC, INDIC ES, WBC, PLT) white blood cell count 5.8 thous and/u L 3.8-10 .8 normal Not Available [address], [address], 11/04/2022 01:01:49 11/04/1911/03/2022 CBC (H/H, RBC, INDIC ES, WBC, PLT) red blood cell count 4.96 rodger on/uL 3.80-5 .10 normal Not Available [address], [address], 11/04/2022 01:01:49 11/04/1911/03/2022 CBC (H/H, RBC, INDIC ES, WBC, PLT) hemoglobin 15.4 g/dL 11.7-1 5.5 normal Not Available [address], [address], 11/04/2022 01:01:49 11/04/1911/03/2022 CBC (H/H, RBC, INDIC ES, WBC, PLT) hematocrit 45.1 % 35.0-4 5.0 high Not Available [address], [address], 11/04/2022 01:01:49 11/04/1911/03/2022 CBC (H/H, RBC, INDIC ES, WBC, PLT) MCV 90.9 fL 80.0-1 00.0 normal Not Available [address], [address], 11/04/2022 01:01:49 11/04/1911/03/2022 CBC (H/H, RBC, INDIC ES, WBC, PLT) MCH 31.0 pg 27.0-3 3.0 normal Not Available [address], [address], 11/04/2022 01:01:49 11/04/1911/03/2022 CBC (H/H, RBC, INDIC ES, WBC, PLT) MCHC 34.1 g/dL 32.0-3 6.0 normal Not Available [address], [address], 11/04/2022 01:01:49 11/04/1911/03/2022 CBC (H/H, RBC, INDIC ES, WBC, PLT) RDW 12.6 % 11.0-1 5.0 normal Not Available [address], [address], 11/04/2022 01:01:49 11/04/1911/03/2022 CBC (H/H, RBC, INDIC ES, WBC, PLT) platelet count 231 thous and/u L 140-40 0 normal Not Available [facility] [address] [address] [place], [address], 11/04/2022 01:01:49 11/04/1911/03/2022 CBC (H/H, RBC, INDIC ES, WBC, PLT) MPV 11.5 fL 7.5-12 .5 normal Not Available [facility] [address] [address] [place], [address], 11/04/2022 01:01:49 11/04/1911/03/2022 HEMOG LOBIN A1C hemoglobin [...] diabe leigh for child kimberly. Not Available [facility] [address] [address] [place], [address], 11/04/2022 01:01:50 08/27/1908/28/2023 COMPR EHENS ANUEL METAB OLIC PANEL glucose 111 mg/dL 65-99 high Fasti ng refer ence inter amy For someo ne witho ut known diabe leigh, a gluco se value betwe en 100 and 125 mg/dL is consi stent with predi abete s and shoul d be confi rmed with a follo w-up test. Not Available [address], [address], 08/28/2023 05:40:37 08/27/19 24 08/28/2023 COMPR EHENS ANUEL METAB OLIC PANEL urea nitrogen (BUN) 16 mg/dL 7-25 normal Not Available [address], [address], 08/28/2023 05:40:37 08/27/19 24 08/28/2023 COMPR EHENS ANUEL METAB OLIC PANEL creatinine 0.70 mg/dL 0.50-1 .05 normal Not Available [address], [address], 08/28/2023 05:40:37 08/27/19 24 08/28/2023 COMPR EHENS ANUEL METAB OLIC PANEL eGFR 95 mL/mi n/1.7 3m2 > or = 60 normal Not Available [address], [address], 08/28/2023 05:40:37 08/27/19 24 08/28/2023 COMPR EHENS ANUEL METAB OLIC PANEL BUN/creatini ne ratio SEE NOTE: (calc ) 6-22 Not Repor cha: BUN and Creat inine are withi n refer ence range . Not Available [address], [address], 08/28/2023 05:40:37 08/27/19 24 08/28/2023 COMPR EHENS ANUEL METAB OLIC PANEL sodium 142 mmol/ L 135-14 6 normal Not Available [facility] [address], [address], 08/28/2023 05:40:37 08/27/19 24 08/28/2023 COMPR EHENS ANUEL METAB OLIC PANEL potassium 4.8 mmol/ L 3.5-5. 3 normal Not Available [facility] [address] [place], [address], 08/28/2023 05:40:37 08/27/19 24 08/28/2023 COMPR EHENS ANUEL METAB OLIC PANEL chloride 102 mmol/ L 98-110 normal Not Available [address], [address], 08/28/2023 05:40:37 08/27/19 24 08/28/2023 COMPR EHENS ANUEL METAB OLIC PANEL carbon dioxide 31 mmol/ L 20-32 normal Not Available [facility] [address], [address], 08/28/2023 05:40:37 08/27/19 24 08/28/2023 COMPR EHENS ANUEL METAB OLIC PANEL calcium 9.7 mg/dL 8.6-10 .4 normal Not Available [address], [address], 08/28/2023 05:40:37 08/27/19 24 08/28/2023 COMPR EHENS ANUEL METAB OLIC PANEL protein, total 7.4 g/dL 6.1-8. 1 normal Not Available [address], [address], 08/28/2023 05:40:37 08/27/19 24 08/28/2023 COMPR EHENS ANUEL METAB OLIC PANEL albumin 4.6 g/dL 3.6-5. 1 normal Not Available [facility] [address], [address], 08/28/2023 05:40:37 08/27/19 24 08/28/2023 COMPR EHENS ANUEL METAB OLIC PANEL globulin 2.8 g/dL_ (calc ) 1.9-3. 7 normal Not Available [facility] [address], [address], 08/28/2023 05:40:37 08/27/19 24 08/28/2023 COMPR EHENS ANUEL METAB OLIC PANEL albumin/glob ulin ratio 1.6 (calc ) 1.0-2. 5 normal Not Available [address], [address], 08/28/2023 05:40:37 08/27/19 24 08/28/2023 COMPR EHENS ANUEL METAB OLIC PANEL bilirubin, total 0.9 mg/dL 0.2-1. 2 normal Not Available [address], [address], 08/28/2023 05:40:37 08/27/19 24 08/28/2023 COMPR EHENS ANUEL METAB OLIC PANEL alkaline phosphatase 74 U/L 37-153 normal Not Available [address], [address], 08/28/2023 05:40:37 08/27/19 24 08/28/2023 COMPR EHENS ANUEL METAB OLIC PANEL AST 16 U/L 10-35 normal Not Available [address], [address], 08/28/2023 05:40:37 08/27/19 24 08/28/2023 COMPR EHENS ANUEL METAB OLIC PANEL ALT 15 U/L 6-29 normal Not Available [address], [address], 08/28/2023 05:40:37 08/27/19 24 08/28/2023 CBC (INCL UDES DIFF/ PLT) white blood cell count 5.8 thous and/u L 3.8-10 .8 normal Not Available [address], [address], 08/28/2023 05:40:38 08/27/19 24 08/28/2023 CBC (INCL UDES DIFF/ PLT) red blood cell count 5.03 rodger on/uL 3.80-5 .10 normal Not Available [facility] [address], [address], 08/28/2023 05:40:38 08/27/19 24 08/28/2023 CBC (INCL UDES DIFF/ PLT) hemoglobin 15.6 g/dL 11.7-1 5.5 high Not Available [facility] [address], [address], 08/28/2023 05:40:38 08/27/19 24 08/28/2023 CBC (INCL UDES DIFF/ PLT) hematocrit 46.7 % 35.0-4 5.0 high Not Available [facility] [address], [address], 08/28/2023 05:40:38 08/27/19 24 08/28/2023 CBC (INCL UDES DIFF/ PLT) MCV 92.8 fL 80.0-1 00.0 normal Not Available [facility] [address], [address], 08/28/2023 05:40:38 08/27/19 24 08/28/2023 CBC (INCL UDES DIFF/ PLT) MCH 31.0 pg 27.0-3 3.0 normal Not Available [employer] [address], [address], 08/28/2023 05:40:38 08/27/19 24 08/28/2023 CBC (INCL UDES DIFF/ PLT) MCHC 33.4 g/dL 32.0-3 6.0 normal Not Available [facility] [address], [address], 08/28/2023 05:40:38 08/27/19 24 08/28/2023 CBC (INCL UDES DIFF/ PLT) RDW 12.9 % 11.0-1 5.0 normal Not Available [employer] [address], [address], 08/28/2023 05:40:38 08/27/19 24 08/28/2023 CBC (INCL UDES DIFF/ PLT) platelet count 272 thous and/u L 140-40 0 normal Not Available [address], [address], 08/28/2023 05:40:38 08/27/19 24 08/28/2023 CBC (INCL UDES DIFF/ PLT) MPV 11.7 fL 7.5-12 .5 normal Not Available [address], [address], 08/28/2023 05:40:38 08/27/19 24 08/28/2023 CBC (INCL UDES DIFF/ PLT) absolute neutrophils 3167 cells /uL 1500-7 800 normal Not Available [address], [address], 08/28/2023 05:40:38 08/27/19 24 08/28/2023 CBC (INCL UDES DIFF/ PLT) absolute lymphocytes 1775 cells /uL 850-39 00 normal Not Available [address], [address], 08/28/2023 05:40:38 08/27/19 24 08/28/2023 CBC (INCL UDES DIFF/ PLT) absolute monocytes 667 cells /uL 200-95 0 normal Not Available [address], [address], 08/28/2023 05:40:38 08/27/19 24 08/28/2023 CBC (INCL UDES DIFF/ PLT) absolute eosinophils 139 cells /uL 15-500 normal Not Available [address], [address], 08/28/2023 05:40:38 08/27/19 24 08/28/2023 CBC (INCL UDES DIFF/ PLT) absolute basophils 52 cells /uL 0-200 normal Not Available [address], [place], [address], 08/28/2023 05:40:38 08/27/19 24 08/28/2023 CBC (INCL UDES DIFF/ PLT) neutrophils 54.6 % normal Not Available [facility] - [address], [address], 08/28/2023 05:40:38 08/27/19 24 08/28/2023 CBC (INCL UDES DIFF/ PLT) lymphocytes 30.6 % normal Not Available [facility] - [address], [address], 08/28/2023 05:40:38 08/27/19 24 08/28/2023 CBC (INCL UDES DIFF/ PLT) monocytes 11.5 % normal Not Available [facility] [address], [address], 08/28/2023 05:40:38 08/27/19 24 08/28/2023 CBC (INCL UDES DIFF/ PLT) eosinophils 2.4 % normal Not Available [facility] - [address], [address], 08/28/2023 05:40:38 08/27/19 24 08/28/2023 CBC (INCL UDES DIFF/ PLT) basophils 0.9 % normal Not Available [facility] - [address], [address], 08/28/2023 05:40:38 08/27/19 24 08/28/2023 URINA LYSIS , COMPL ETE W/REF GLO TO CULTU RE color YELLOW yellow normal Not Available [facility] [address], [address], 08/28/2023 05:40:39 08/27/19 24 08/28/2023 URINA LYSIS , COMPL ETE W/REF GLO TO CULTU RE appearance CLOUDY clear abnormal Not Available [facility] [address], [address], 08/28/2023 05:40:39 08/27/19 24 08/28/2023 URINA LYSIS , COMPL ETE W/REF GLO TO CULTU RE specific gravity 1.016 1.001- 1.035 normal Not Available [address], [address], 08/28/2023 05:40:39 08/27/19 24 08/28/2023 URINA LYSIS , COMPL ETE W/REF GLO TO CULTU RE pH 5.5 5.0-8. 0 normal Not Available [address], [address], 08/28/2023 05:40:39 08/27/19 24 08/28/2023 URINA LYSIS , COMPL ETE W/REF GLO TO CULTU RE glucose NEGATI VE negati ve normal Not Available [address], [address], 08/28/2023 05:40:39 08/27/19 24 08/28/2023 URINA LYSIS , COMPL ETE W/REF GLO TO CULTU RE bilirubin NEGATI VE negati ve normal Not Available [address], [address], 08/28/2023 05:40:39 08/27/19 24 08/28/2023 URINA LYSIS , COMPL ETE W/REF GLO TO CULTU RE ketones 1+ negati ve abnormal Not Available [facility] [address], [address], 08/28/2023 05:40:39 08/27/19 24 08/28/2023 URINA LYSIS , COMPL ETE W/REF GLO TO CULTU RE occult blood NEGATI VE negati ve normal Not Available [facility] [address], [address], 08/28/2023 05:40:39 08/27/19 24 08/28/2023 URINA LYSIS , COMPL ETE W/REF GLO TO CULTU RE protein NEGATI VE negati ve normal Not Available [address], [address], 08/28/2023 05:40:39 08/27/19 24 08/28/2023 URINA LYSIS , COMPL ETE W/REF GLO TO CULTU RE nitrite NEGATI VE negati ve normal Not Available [address], [address], 08/28/2023 05:40:39 08/27/19 24 08/28/2023 URINA LYSIS , COMPL ETE W/REF GLO TO CULTU RE leukocyte esterase NEGATI VE negati ve normal Not Available [address], [address], 08/28/2023 05:40:39 08/27/19 24 08/28/2023 URINA LYSIS , COMPL ETE W/REF GLO TO CULTU RE WBC 0-5 /hpf < or = 5 normal Not Available [address], [address], 08/28/2023 05:40:39 08/27/19 24 08/28/2023 URINA LYSIS , COMPL ETE W/REF GLO TO CULTU RE RBC 0-2 /hpf < or = 2 normal Not Available [address], [address], 08/28/2023 05:40:39 08/27/19 24 08/28/2023 URINA LYSIS , COMPL ETE W/REF GLO TO CULTU RE squamous epithelial cells 10-20 /hpf < or = 5 abnormal Not Available [address], [address], 08/28/2023 05:40:39 08/27/19 24 08/28/2023 URINA LYSIS , COMPL ETE W/REF GLO TO CULTU RE bacteria MODERA TE /hpf none seen abnormal Not Available [facility] [address], [address], 08/28/2023 05:40:39 08/27/19 24 08/28/2023 URINA LYSIS , COMPL ETE W/REF GLO TO CULTU RE calcium oxalate crystals MANY /hpf none or few abnormal Not Available [facility] - [address], [address], 08/28/2023 05:40:39 08/27/19 24 08/28/2023 URINA LYSIS , COMPL ETE W/REF GLO TO CULTU RE hyaline cast 0-5 /lpf none seen abnormal Not Available [facility] [address], [address], 08/28/2023 05:40:39 08/27/19 24 08/28/2023 URINA LYSIS , COMPL ETE W/REF GLO TO CULTU RE note This urine was parul zed for the prese nce of WBC, RBC, bacte charan, casts , and other forme d eleme nts. Only those eleme nts seen were repor cha. Not Available [address], [address], 08/28/2023 05:40:39 08/27/19 24 08/28/2023 REFLE XIVE URINE CULTU RE reflexive urine culture NO CULTU RE INDIC ATED Not Available [address], [address], 08/28/2023 05:40:40 08/27/19 24 08/28/2023 TSH W/REF GLO TO FT4 TSH w/reflex to FT4 3.56 mIU/L 0.40-4 .50 normal Not Available [address], [address], 08/28/2023 05:40:40 01/29/20 23 XR, foot, 3 or more view No observ ation record ed. [email or web address] [facility] [place] [address], [place], [address], 01/28/2023 12:14:51 09/02/19 24 09/02/2023 CT, abdom en + pelvi s, w/ contr ast No observ ation record ed. [email or web address] [facility] [address], [place], [address], 10/12/2023 14:16:09 09/02/19 24 09/02/2023 US, neck, soft tissu e No observ ation record ed. [email or web address] [facility] [address], [place], [address], 2023 10:56:05 09/02/19 24 09/02/2023 US, neck, soft tissu e No observ ation record ed. [email or web address] [place] [address] [address], [place], [address], 2023 10:57:21 Result Notes None recorded. Problems Name Problem SNOMED Code Status Onset Date Resolution Date Notes Provider Name and Address Organization Details Recorded Time Acne 20351970 Completed Not Available [facility], [facility] 3 05:56:05 Abdominal pain 52083040 Completed BELA Bautista [address], [place], [address] , [facility] 4 11:48:02 Gastroeso phageal reflux disease 115559831 Active Not Available [facility] 3 05:56:06 Thyroid nodule 161522103 Active Not Available [facility] 3 05:56:06 Triggerin g of digit 866841321 Active Not Available [facility] 3 05:56:06 Pain in thyroid 831496071 Completed Not Available [facility] 3 05:56:06 Vitamin D deficienc y 72742980 Active Not Available [facility] 3 05:56:06 Allergy to food 206218823 Active Not Available [facility] 3 05:56:06 Tendiniti s of hand 286624191 Completed Not Available [facility] 3 05:56:06 Hypokalem ia 13860296 Completed Not Available [facility] 3 05:56:06 Anxiety 17759325 Active Not Available [facility] 3 05:56:06 Pain of hip region 13175934 Completed Not Available [facility] 3 05:56:06 Hyperlipi demia 60771938 Active Not Available [facility] 3 05:56:07 Essential hypertens ion 67158366 Active Not Available [facility] 3 05:56:07 Diarrhea 16801040 Completed Not Available [facility] 3 05:56:07 Supravent ricular tachycard ia 4126447 Active Not Available [facility] 3 05:56:07 Muscle pain 61338077 Completed Not Available [facility] 3 05:56:07 Diabetes mellitus 16895794 Active Not Available [facility] 3 05:56:07 Hyperglyc emia 57990948 Active Not Available [facility] 3 05:56:07 Fatigue 93930658 Active Not Available [facility] 3 05:56:07 Psoriasis 4518700 Active Not Available [facility] 3 05:56:08 Kidney stone 57926420 Active Not Available [facility] 3 05:56:08 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 2016 Not Available [facility] 3 05:56:06 Influenza vaccinati on declined 856798826 Active 2021 Not Available [facility] 3 05:56:06 Prediabet es 611388272 Active 2021 Not Available [facility] 3 05:56:07 Pain in left foot 05693251237 9107 Active 2022 Sammy Cano, INFORMATION AND REFERRAL DIRECTOR [address] [facility], [facility] [[email or web address]] [address], [place], [address] , [facility] 3 16:34:00 Right flank pain 869995575 Active 2022 SHANTELL Reyna [address], [place], [address] , [facility] 3 16:35:24 Seasonal allergy 154735680 Active 2022 Suzanne Valle null, [place] [facility] [place] [facility] 3 11:14:36 Arthritis 6298421 Active 2022 Suzanne Valle null, [place] [facility] [place] [facility] 3 11:18:59 Dizziness 274313367 Active 2022 Suzanne Valle null, [place] [facility] 3 11:19:21 Disorder of eye 544471494 Active 2022 Suzanne Valle null, [place] [facility] [place] [facility] 3 11:19:30 Headache 92762353 Active 2022 Suzanne Valle null, [place] [facility] [place] [facility] 3 11:19:42 Heartburn 83561794 Active 2022 Suzanne Valle null, [place] [facility] [place] [facility] 3 11:19:49 Obesity 001596580 Active 2022 Suzanne Valle null, [place] [facility] [place] [facility] 3 11:20:09 Skin problem 149627049 Active 2022 Suzanne Valle null, [place] [facility] 3 11:20:18 Tendiniti s of foot 749191913 Active 2022 Stan Guerrier DPM [address], [address], [place], [address] , [facility] 3 11:42:34 Mass of neck 967533204 Active 2023 BELA Bautista [address], [address], [place], [address] , [place] [facility] [employer] [facility] 4 11:43:57 Abdominal pain 04526620 Active 2023 BELA Bautista [address], [place], [address] , [facility] [employer] [facility] 4 11:48:02 Problem Notes None recorded. Procedures Surgical History Date Name Laterality Status Provider Name and Address Organization Details Recorded Time 01/29/20 23 Plantar Fascia Injection Left Foot completed Stan Guerrier DPM [address], [place], [address], [facility] [employer] [facility] 01/28/2023 11:42:16 05/24/18 90 Tonsillectomy completed Suzanne Valle [facility] [employer] [facility] 01/28/2023 11:17:18 Cholecystectomy completed Not Available [facility] 07/22/2022 05:52:17 completed Not Available [facility] 07/22/2022 05:52:17 Hysterectomy completed Not Available [facility] 07/22/2022 05:52:17 Hernia Repair completed Not Available [facility] 07/22/2022 05:52:17 Colonoscopy completed Not Available [facility] 07/22/2022 05:52:17 Imaging Results None recorded. Procedure Notes None recorded. Medical Equipment None Reported. Allergies Allergen ID Allergen Name Allergen Category Reaction Reaction Severity Criticality Documentation Date Start Date Code Code System Note Provider Name and Address Organization Details Recorded Time 84582 Zyrtec medicatio n dizziness Not available Not available 07/22/2022 03056 RxNorm Not Available [facility] 3 06:04:54 94865 wheat preparati on food,medi cation Not available Not available Not available 07/22/2022 90208 52 RxNorm Not Available [facility] 3 06:04:54 95148 Niaspan medicatio n other Not available Not available 07/22/2022 58529 6 RxNorm INCRE ASED SUGAR Not Available [facility] 3 06:04:54 24443 amlodipin e / benazepri l medicatio n cough Not available Not available 07/22/2022 30495 3 RxNorm Not Available [facility] 3 06:04:54 74029 Diovan medicatio n headache Not available Not available 07/22/2022 66136 2 RxNorm Not Available [facility] 3 06:04:54 84790 codeine medicatio n Not available Not available Not available 07/22/2022 2670 RxNorm Not Available [facility] 3 06:04:54 76755 Benicar medicatio n headache Not available Not available 07/22/2022 10101 3 RxNorm Not Available [facility] 3 06:04:54 70532 fish oils food,medi cation hives Not available Not available 01/28/2023 4419 RxNorm [employer] [facility] [employer] 3 11:06:01 38637 Product containin g angiotens in-conver ting enzyme inhibitor (product) medicatio n Not available Not available Not available 01/28/2023 54538 009 SNOMED [employer]anne [employer] [facility] [employer] 3 11:06:18 Medications Name Sig Start Date [...] Available Not Available Vitals Date Recorded Body height Body mass index (BMI) Body weight Body temperature Heart rate Oxygen saturation Oxygen saturation in Arterial blood by Pulse oximetry Systolic And Diastolic Provider Name and Address Organization Details Last Updated DateTime 4 157.48 cm 44.3 kg/m2 220766. 35 g 97.1 [degF] 84 /min 99 % 99 % 150/82 mm[Hg] Sabina Lawson RN [facility] [employer] [facility] 4 11:36:23 Date Recorded Body height Body mass index (BMI) Body weight Body temperature Heart rate Oxygen saturation Oxygen saturation in Arterial blood by Pulse oximetry Systolic And Diastolic Provider Name and Address Organization Details Last Updated DateTime 3 157.48 cm 44.1 kg/m2 045110. 76 g 97.8 [degF] 104 /min 98 % 98 % 178/100 mm[Hg] Nicole Delgado RN [facility] [employer] [facility] 3 16:12:37 Date Recorded Body height Body mass index (BMI) Body weight Provider Name and Address Organization Details Last Updated DateTime 01/28/2023 157.48 cm 43.3 kg/m2 209921.39 g Suzanne Valle [facility] [employer] [facility] 01/28/2023 11:14:07 Date Recorded Body height Body mass index (BMI) Body weight Heart rate Respiratory rate Oxygen saturation Oxygen saturation in Arterial blood by Pulse oximetry Systolic And Diastolic Provider Name and Address Organization Details Last Updated DateTime 3 157.48 cm 43.3 kg/m2 188108. 39 g 83 /min 14 /min 98 % 98 % 156/83 mm[Hg] Tomasa Mora [facility] [employer] [facility] 3 10:14:04 Date Recorded Body mass index (BMI) Body height Oxygen saturation Oxygen saturation in Arterial blood by Pulse oximetry Heart rate Body temperature Body weight Systolic And Diastolic Provider Name and Address Organization Details Last Updated DateTime 2 43.5 kg/m2 157.48 cm 98 % 98 % 95 /min 97.2 [degF] 506003. 98 g 160/80 mm[Hg] Not Available [employer] 3 05:55:10 Social History Question Answer Notes LastModified by [employer] Details LastModified Time Tobacco Smoking Status Former Smoker Suzanne hester [facility] [employer] [facility] 01/28/2023 11:05:16 What Is Your Level Of Caffeine Consumption? None [id number] Information not available 07/22/2022 Sex: Unknown Functional Status Question Answer Note LastModified by [employer] Details LastModified Time Do you use any illicit or recreational drugs? No Information not available 01/28/2023 What is your level of alcohol consumption? Occasional [id number] Information not available 07/22/2022 Mental Status Question Answer Note LastModified by Organization D etails LastModified Time Do you feel stressed (tense, restless, nervous, or anxious, or unable to sleep at night)? PM3411-4 Information not available 01/28/2023 Family History Relationship Description Onset Age of [...] 50 mcg/0.25mL dose 1 completed Not Available [facility] 07/22/2022 06:04:49 COVID-19, mRNA, LNP-S, PF, 100 mcg/0.5mL dose or 50 mcg/0.25mL dose 1 completed Not Available [facility] 07/22/2022 06:04:49 Influenza, split virus, trivalent, preservative 3 completed Not Available [facility] 07/22/2022 06:04:49 Influenza, split virus, trivalent, preservative 2 completed Not Available [facility] 07/22/2022 06:04:49 Tdap 1 completed Not Available [facility] 07/22/2022 06:04:49 Influenza, split virus, trivalent, PF 3 completed Not Available [facility] 07/22/2022 06:04:49 Past Encounters Encounter ID Performer Location Encounter Start Date Encounter Closed Date Diagnosis/Indication Diagnosis SNOMED-CT Code Diagnosis ICD10 Code Diagnosis IMO Codes Diagnosis Note [id number] [facility] [place] [address] 03/05/2021 00:00:00 03/05/2021 13:35:58 [id number] [facility] [place] [address] 10/08/2021 00:00:00 10/08/2021 12:08:22 [id number] [facility] [place] [address] 03/31/2022 00:00:00 03/31/2022 17:21:13 [id number] SHANTELL Reyna [facility] Kelly morillo [address] [place] [address] 10/22/2022 16:03:31 10/22/2022 17:06:51 Diabetes mellitus 83286475 E11.9 TleikunY7Y 5.8 (04/04/22) Discussed need for regular exercise, increase intake of water/vege tables/fib er. Decrease intake of carbs, especially white rice/pasta /flour/kishan ad/sugar.D ue for updated labs. Essential hypertension 15317761 I10 Not in good controlAsy mptomatic at this timeIncrea se amlodipine to 10mg dailyEncou raged pt to increase water intake, reduce caffeine intake, exercise regularly, decrease/e liminate sodium intake, work on weight loss and stress reductionP t to continue to track bps at home. Call if bps consistent ly >150/90. Allergy to food 70877139 1 T78.1XXD ChronicWhe at, shellfishC ontinue to avoid contact with trigger foods and/or contaminat ion of foods.Enco uraged pt to update Epi-pen, new rx given. Pain in left foot 076695 8177 90391 M79.672 New problemLef t lateral footNo visible injury to foot.Will refer to podiatry for further evaluation /tx. Right flank pain 2131207 09 R10.9 New problemSus pect muscle strainDisc ussed with patient that symptoms and physical examinatio n findings are consistent with muscle/ten don strain. Encouraged rest/activ ity modificati on, applicatio n of ice/heat, proper body mechanics, and use of an OTC anti-infla mmatory as needed. [id number] Stan Guerrier DPM [facility] [place] [address] [facility] [address] [place] [address] 01/28/2023 11:00:45 01/28/2023 12:15:42 Tendinitis of foot 930146485 M77.52 steroid injection todayrice therapycon tinue supportive shoe gearrecomm end [employer] orthoticsx -rays ordered left footfollow -up in 4 weeks [id number] Stan Guerrier DPM [facility] [place] [address] [place] [address] 03/02/2023 10:06:49 03/02/2023 11:24:12 Tendinitis of foot 126905637 M77.52 continue supportive shoe gearimprov edrice therapyrec ommend [employer] orthotics- - not utilizefol low-up in 5 weeks [id number] Xena Sanchez MD [facility] [address] [place] [address] 08/24/2023 11:23:31 08/24/2023 12:00:26 Mass of neck 087590300 R22.1 -noted to right neck, approx 5 weeks ago-some tenderness noted to right side of neck-notes hx of 3 thyroid nodules in the past, she never got her f/u US after covid-no dysphagia, but does note new scratchine ss to her voice-US neck ordered Abdominal pain 71834046 R10.9 -pt notes hx of hernia repair with mesh in 1999-now noting pains in the lower abdomen (area of mesh)-CT abdomen ordered Health Concerns Section Related Observation LastModified by Organization Detai ls LastModified Time None Recorded Concern Status LastModified by Organization Details LastModified Time None Recorded Advance Directives Directive None Recorded Payers Insurance Date Sequence Insurance Name Policy Number Policy Vidales Covered Member ID Vidlaes Member ID Guarantor Name 08/23/2023 1 [employer] (MEDICARE REPLACEMENT/ ADVANTAGE - PPO) [id number] Yas Edwards [id number] Yaya Edwards Notes Date Note Type Note [...] at home in 2014. SHANTELL Reyna [address], [place], [address], [facility] 10/22/2022 18:00:10 01/28/2023 text/html . Patient is [...] other pedal complaints. Stan Guerrier DPM [address], [place], [address], [employer] 01/28/2023 12:15:09 03/02/2023 text/html . Patient is [...] physical therapy. Stan Guerrier DPM [address] [place] [address], [place], [address], [employer] Reply 03/02/2023 10:49:04 08/24/2023 text/html pt is here for thyroid nodules BELA Bautista [address] [facility] [[email or web address] [address], [place], [address], [employer] 08/25/2023 10:37:20 OBGyn Episode No OBEpisode recorded.
== END 2025-02-26 10:51 | disposition home or self-care (01) ==
PROVIDERS: PCP Nurse Practitioner Adult Health; Visit Provider Nurse Practitioner Adult Health
DX: R91.1 Solitary pulmonary nodule (principal); R91.8 Other nonspecific abnormal finding of lung field
CPT/HCPCS: 71250